=== PATIENT | female | born 1960 | race Caucasian/White ===

== ENCOUNTER → 2017-08-23 | Outpatient (CLI) | payer MEDICARE, OTHER | END | disposition home or self-care (01) | LOC: LAB UCHC 10:45 | DX: R35.0 Frequency of micturition (principal) | CPT/HCPCS: 87086 ==

== ENCOUNTER → 2017-08-29 | Outpatient (CLI) | payer MEDICARE, OTHER ==
[2017-08-29 11:22] LABS: Source, Urine Voided
[2017-08-29 14:18] LABS: Appearance, Urine Cloudy (Clear); Bilirubin, Urine Neg (Neg); Blood, Urine 5+ (Neg); Color, Urine Yellow (P-Yellow); Glucose Qualitative, Urine Neg (Neg); Ketones, Urine Neg (Neg); Leukocyte Esterase, Urine 1+ (Neg); Nitrite, Urine Neg (Neg); Protein, Urine 3+ (Neg); Urobilinogen, Urine NORM (Normal)
[2017-08-29 14:33] LABS: Bacteria Many /hpf; Red Blood Cells, Urine 50-100 /hpf (0-2); Squamous Epithelial Cells Few /hpf (Few); White Blood Cells, Urine 25-50 /hpf (0-5)
== END ==
LOC: LAB 11:19
PROVIDERS: Family Medicine
DX: R35.0 Frequency of micturition (principal); R30.0 Dysuria
CPT/HCPCS: 81001; 87086

== ENCOUNTER 2018-04-28 13:10 | Emergency (ER) | payer MEDICARE, OTHER ==
[~2018-04-28] VITALS: Ht 167.6 cm; Wt 79.4 kg
[2018-04-28 14:33] LABS: Source, Urine Clean Catch
[2018-04-28 14:40] LABS: Bilirubin, Urine Neg (Neg); Blood, Urine 5+ (Neg); Glucose Qualitative, Urine Neg (Neg); Ketones, Urine Neg (Neg); Leukocyte Esterase, Urine 2+ (Neg); Nitrite, Urine Neg (Neg); Protein, Urine 3+ (Neg); Urobilinogen, Urine NORM (Normal)
[2018-04-28 15:05] LABS: BASOPHILS ABSOLUTE AUTO 0.06 K/mm3 (0.00-0.23); BASOPHILS PERCENT AUTO 1 % (0-2); EOSINOPHILS ABSOLUTE AUTO 0.07 K/mm3 (0.00-0.68); EOSINOPHILS PERCENT AUTO 1 % (0-6); Hematocrit 39.6 % (33.0-51.0); Hemoglobin 13.7 g/dL (11.5-16.0); IMMATURE GRAN ABSOLUTE AUTO 0.02 K/mm3 (0.00-0.10); IMMATURE GRAN PERCENT AUTO 0 % (0-1); LYMPHOCYTES ABSOLUTE AUTO 2.39 K/mm3 (0.84-5.20); LYMPHOCYTES PERCENT AUTO 30 % (21-46); MONOCYTES ABSOLUTE AUTO 0.54 K/mm3 (0.16-1.47); MONOCYTES PERCENT AUTO 7 % (4-13); Mean Corpuscular HGB 31.1 pg (26.0-34.0); Mean Corpuscular HGB Conc 34.6 g/dL (31.5-36.5); Mean Corpuscular Volume 90 fL (80-100); Mean Platelet Volume 10.2 fL (9.1-12.4); NEUTROPHILS ABSOLUTE AUTO 4.98 K/mm3 (1.96-9.15); NEUTROPHILS PERCENT AUTO 62 % (41-73); Platelet Count 205 K/mm3 (150-400); RDW Coefficient Variation 11.9 % (11.7-14.2); White Blood Cell Count 8.06 K/mm3 (4.00-11.30)
[2018-04-28 15:11] LABS: Alanine Aminotransfer (ALT/SGP 117 U/L (12-78); Albumin, Blood 3.7 g/dL (3.4-5.0); Albumin/Globulin Ratio 0.9 (0.8-1.8); Alk Phos 54 U/L (50-136); Anion Gap 10 mmol/L (6-16); Aspartate Aminotrans (AST/SGOT 46 U/L (12-37); Bilirubin, Total 0.4 mg/dL (0.1-1.0); Blood Urea Nitrogen 15 mg/dL (8-24); Bun/Creatinine Ratio 29.8 (12.0-20.0); CO2, Blood 30 mmol/L (21-32); Calcium, Blood 10.2 mg/dL (8.5-10.1); Chloride, Blood 100 mmol/L (98-108); Ethanol (Alcohol), Blood, Med <3 mg/dL; Globulin, Blood 3.9 g/dL (2.2-4.0); Glomerular Filtration Rate >60 (60-); Glucose, Blood 153 mg/dL (70-99); Potassium, Blood 3.9 mmol/L (3.5-5.5); Sodium, Blood 140 mmol/L (136-145); Total Protein, Blood 7.6 g/dL (6.4-8.2)
[2018-04-28 15:12] LABS: Appearance, Urine Hazy (Clear); Color, Urine Yellow (P-Yellow)
[2018-04-28 15:17] LABS: Bacteria Few /hpf; Calcium Oxalate Crystals Few /hpf; Squamous Epithelial Cells Few /hpf (Few)
[2018-04-28 15:30] LABS: U Amphetamine Screen Not Detected; U Barbituate Screen Not Detected; U Benzodiazapine Screen Not Detected; U Buprenorphine Screen Not Detected; U Cannabinoids Screen Not Detected; U Cocaine Screen Not Detected; U Methadone Screen Not Detected; U Methamphetamine Screen Not Detected; U Opiates Screen Not Detected; U Oxycodone Screen Not Detected; U Phencyclidine Screen Not Detected; U Propoxyphene Screen Not Detected
== END 2018-04-28 16:01 | disposition left against medical advice (07) ==
LOC: ER 13:10
PROVIDERS: Emergency Medicine
DX: R41.82 Altered mental status, unspecified (principal); F17.200 Nicotine dependence, unspecified, uncomplicated
CPT/HCPCS: 36415; 70450; 80053; 81001; 82140; 82375; 85025; 87086; 93005; 93010; 96360; 99285-25; G0480; J7030

== ENCOUNTER 2019-07-12 14:24 | Observation (INO) | payer MEDICARE ==
[~2019-07-12] VITALS: Ht 160 cm; Wt 48.4 kg
[2019-07-12 15:12] LABS: BASOPHILS ABSOLUTE AUTO 0.03 K/mm3 (0.00-0.23); BASOPHILS PERCENT AUTO 0 % (0-2); EOSINOPHILS ABSOLUTE AUTO 0.08 K/mm3 (0.00-0.68); EOSINOPHILS PERCENT AUTO 1 % (0-6); Hematocrit 47.5 % (33.0-51.0); Hemoglobin 15.7 g/dL (11.5-16.0); IMMATURE GRAN ABSOLUTE AUTO 0.02 K/mm3 (0.00-0.10); IMMATURE GRAN PERCENT AUTO 0 % (0-1); LYMPHOCYTES ABSOLUTE AUTO 2.07 K/mm3 (0.84-5.20); LYMPHOCYTES PERCENT AUTO 22 % (21-46); MONOCYTES PERCENT AUTO 5 % (4-13); Mean Corpuscular HGB 31.1 pg (26.0-34.0); Mean Corpuscular HGB Conc 33.1 g/dL (31.5-36.5); Mean Corpuscular Volume 94 fL (80-100); Mean Platelet Volume 12.9 fL (9.1-12.4); NEUTROPHILS ABSOLUTE AUTO 6.55 K/mm3 (1.96-9.15); NEUTROPHILS PERCENT AUTO 71 % (41-73); Platelet Count 185 K/mm3 (150-400); RDW Coefficient Variation 12.5 % (11.7-14.2); RDW Standard Deviation 43.1 fL (35.1-46.3); Red Blood Cell Count 5.05 M/mm3 (3.80-5.20); White Blood Cell Count 9.25 K/mm3 (4.00-11.30)
[2019-07-12 15:26] LABS: International Normalized Ratio 1.02; Prothrombin Time Results 10.9 Sec (9.7-11.5)
[2019-07-12 15:40] LABS: Alanine Aminotransfer (ALT/SGP 51 U/L (12-78); Albumin, Blood 3.4 g/dL (3.4-5.0); Albumin/Globulin Ratio 0.7 (0.8-1.8); Alk Phos 89 U/L (50-136); Anion Gap 6 mmol/L (6-16); Aspartate Aminotrans (AST/SGOT 35 U/L (12-37); Bilirubin, Total 0.4 mg/dL (0.1-1.0); Blood Urea Nitrogen 29 mg/dL (8-24); Bun/Creatinine Ratio 40.1 (12.0-20.0); CO2, Blood 30 mmol/L (21-32); Calcium, Blood 9.7 mg/dL (8.5-10.1); Chloride, Blood 113 mmol/L (98-108); Creatinine, Blood 0.72 mg/dL (0.40-1.00); Ethanol (Alcohol), Blood, Med <3 mg/dL; Globulin, Blood 4.7 g/dL (2.2-4.0); Glomerular Filtration Rate >60 (60-); Glucose, Blood 470 mg/dL (70-99); Potassium, Blood 4.4 mmol/L (3.5-5.5); Sodium, Blood 149 mmol/L (136-145); Total Protein, Blood 8.1 g/dL (6.4-8.2)
[2019-07-12 17:17] LABS: Source, Urine Clean Catch
[2019-07-12 17:19] LABS: Bilirubin, Urine Neg (Neg); Blood, Urine 1+ (Neg); Glucose Qualitative, Urine 4+ (Neg); Ketones, Urine Neg (Neg); Leukocyte Esterase, Urine 1+ (Neg); Nitrite, Urine Neg (Neg); Protein, Urine 1+ (Neg); Urobilinogen, Urine NORM (Normal)
[2019-07-12 17:28] LABS: Appearance, Urine Clear (Clear); Color, Urine Yellow (P-Yellow)
[2019-07-12 17:29] LABS: Bacteria Mod /hpf; Hyaline Casts 0-2 /lpf (0-2); Mucus Mod (0-Heavy); Red Blood Cells, Urine 0-2 /hpf (0-2); Squamous Epithelial Cells Rare /hpf (Few)
[2019-07-12 17:32] LABS: U Amphetamine Screen Not Detected; U Barbituate Screen Not Detected; U Benzodiazapine Screen Not Detected; U Buprenorphine Screen Not Detected; U Cannabinoids Screen Not Detected; U Cocaine Screen Not Detected; U Methadone Screen Not Detected; U Methamphetamine Screen Not Detected; U Opiates Screen Not Detected; U Oxycodone Screen Not Detected; U Phencyclidine Screen Not Detected; U Propoxyphene Screen Not Detected
[2019-07-12 18:55] LABS: Free Thyroxine 0.73 ng/dL (0.70-1.60)
[2019-07-12 18:58] LABS: Thyroid Stimulating Hormone 2.29 uIU/mL (0.360-4.800); Triiodothyronine, Free 2.05 pg/mL (2.18-3.98)
--- NOTE | 2019-07-13 02:40 | NUR ---
FINANCE ADMINISTRATOR SUMMARY PT NEW ADMIT FROM ER. REPORT RECIEVED FROM AMY HUERTA AROUND 2200. 2315 OT TRANSFFERED TO UNIT VIA STRETCHER. MOVED TO UNIT BED USING TRANSFER SHEET. PT IS NOT A/O. CAN SOMETIMES ANSWER YES AND NO QUESTIONS. OCCASIONALLY WOULD SMILE AND NOD BUT CANNOT COMPREHEND WHAT STAFF SAYS. PT IS NOT COMBATIVE BUT WOULD REACH OUT FOR MY HAND WHEN I GAVE HER INJECTIONS. AYDEE DU HELPED ME HOLD HER HAND WHILE I GAVE HER INJECTIONS PER EMAR. PT CURRENTLY ON BED REST. VSS, WILL CONTINUE TO MONITOR.
[2019-07-13 05:41] LABS: Anion Gap 6 mmol/L (6-16); Blood Urea Nitrogen 25 mg/dL (8-24); Bun/Creatinine Ratio 33.3 (12.0-20.0); CO2, Blood 30 mmol/L (21-32); Calcium, Blood 9.3 mg/dL (8.5-10.1); Chloride, Blood 118 mmol/L (98-108); Creatinine, Blood 0.75 mg/dL (0.40-1.00); Glomerular Filtration Rate >60 (60-); Glucose, Blood 112 mg/dL (70-99); Potassium, Blood 3.2 mmol/L (3.5-5.5); Sodium, Blood 154 mmol/L (136-145)
--- NOTE | 2019-07-13 18:09 | NUR ---
PATIENT IS ALERT. SHE IS CONFUSED. NON-COMBATIVE. SHE GRINDS HER TEETH. SHE IS AT TIMES DIFFICULT TO REDIRECT. SHE HAS A GOOD APPETITE, SHE LIKES ENSURES. WILL CONTINUE TO MONITOR
--- NOTE | 2019-07-14 05:58 | NUR ---
SHIFT SUMMARY: ALERT TO SELF ONLY. PT SPEAKING ONE OR TWO WORDS IN RESPONSE TO CONVERSATION. REPEATS WORDS SHE HEARS. LAUGHING AT THE TV SHOW SHE WAS WATCHING. PT HAS SLEPT WELL MUCH OF THE NIGHT. SLEEPS THROUGH TURNS AND WAKES MINIMALLY WITH BRIEF CHANGES. BED LOW, BED ALARM ON.
[2019-07-14 11:51] LABS: Anion Gap 5 mmol/L (6-16); Blood Urea Nitrogen 21 mg/dL (8-24); Bun/Creatinine Ratio 30.1 (12.0-20.0); CO2, Blood 29 mmol/L (21-32); Calcium, Blood 8.3 mg/dL (8.5-10.1); Chloride, Blood 109 mmol/L (98-108); Glomerular Filtration Rate >60 (60-); Glucose, Blood 147 mg/dL (70-99); Potassium, Blood 3.7 mmol/L (3.5-5.5)
[2019-07-14 11:52] LABS: Sodium, Blood 143 mmol/L (136-145)
--- NOTE | 2019-07-14 17:53 | NUR ---
PATIENT MORE VERBAL THE DAY PROGRESSED. SON AND BROTHER AT BEDSIDE FOR PART OF THE DAY. PATIENT HAD SEVERAL HARD BM'S THIS SHIFT AND BOWEL CARE WAS ORDERED. BLOOD SUGAR THIS EVENING WAS 431, DR FERNANDO NOTIFIED AND 12 UNITS NOVOLOG GIVEN. WE ARE TO RECHECK BLOOD SUGAR AT 1930. VSS, ON RA. PATIENT UP WITH SBA. SKIN INTACT. PRN SEROQUEL GIVEN X1 THIS SHIFT FOR AGITATION. PATIENT DOES NOT FOLLOW COMMANDS. AWAITING PLACEMENT.
--- NOTE | 2019-07-15 06:13 | NUR ---
MACHINIST SUPERVISOR OUTSIDE SUMMARY Mary slept through the night other than when she was turned. Coccyx moderately red, but dose farideh with light palpation. patient does not ever lay on back. combination silicone and calmoseptine. Patient pleasant and cooperative with care although non verbal except for a rare amount of one word responses.
--- NOTE | 2019-07-15 17:34 | NUR ---
NO ACUTE CHANGES THIS SHIFT. FALL PRECAUTIONS IN PLACE PER UNIT PROTOCOL. PATIENT IS PLEASANTLY CONFUSED BUT COOPERATIVE. AWAITING PLACEMENT.
--- NOTE | 2019-07-16 04:18 | NUR ---
CCU NURSE SUMMARY Patient slept comfortably all night. She was able to turn self from side to side and onto her back with very minimal assistance. Still basically non verbal. whispering indistinguishable one word answers in response to nurses questions. She did try to bite the milk carton she was drinking from once it was empty, However She stopped as soon as she was told it was not good for her.no complaints or gestures indicating pain or discomfort. Incont of urine twice overnight
--- NOTE | 2019-07-16 19:36 | NUR ---
SHIFT SUMMARY- PT HAD A VISITOR FROM THE COURT TODAY ABOUT HER GUARDIANSHIP. HE STATED THAT HE HAS BEEN UNABLE TO MAKE CONTACT WITH PT FAMILY OF YET. PT HAS ADVANCED DEMENTIA AND WILL EAT ANYTHING LEFT WITHIN HER REACH. CLOSE MONITORING WITH ALL MEALS HER MEALS COME IN FOAM BOWLS. PT DID NOT EAT ANY OF THE DISHES TODAY. PASSED ON IN REPORT TO THE NIGHT DEANNA SARKAR IN REPORT. BED ALARM FOR SAFETY.
--- NOTE | 2019-07-17 06:08 | NUR ---
SHIFT SUMMARY NO ACUTE CHANGES THIS SHIFT. AOX1, TO SELF ONLY. DOES NOT ANSWER QUESTIONS APPROPRIATELY, WHEN ASKED WHERE SHE IS SHE STATES "HERE" & REPLYS "I DON'T KNOW" WHEN ASKED OTHER QUESTIONS, MOST OF THE TIME THOUGH SHE IS QUIET & MUMMBLES WORDS THAT DON'T HAVE ANYTHING TO DO WITH WHAT YOU'VE ASKED. DOES NOT FOLLOW DIRECTIONS WELL. COOPERATIVE W/CARE. VSS. DENIES PAIN, N/V, OR DYSPNEA & SHOWS NO S/S. INCONTINENT OF URINE & CHANGED PRN. CALL LIGHT IN REACH & BED ALARM IN PLACE. WCTM.
--- NOTE | 2019-07-17 17:43 | NUR ---
NO ACUTE CHANGES NOTED. PATIENT REMAINS NONSENSICAL IN HER SPEACH AND VERBAL INTERACTIONS WITH STAFF. NO CURRENT COMPLAINTS OF PAIN OR DISCOMFORT NOTED. PATIENTS BED ALARM GOES OFF OFTEN DUE TO SHE SIZE. SHE REMAINS IN BED OR THE CHAIR WITH MINIMAL ATTEMPS TO ACTUALLY GET UP. NO OTHER ISSUES NOTED AT THIS TIME. WILL CONTINUE TO MONITOR FOR CHANGES.
--- NOTE | 2019-07-17 17:58 | NUR ---
Inital spiritual care note: Mary was alone in room, awake, and sitting up in bed. She mumbled some tings about her father, but did not appear able to engage in conversation. She could not answer questions, and laughed wildly for no apparent reason. She smiles easily and appears well cared-for by nursing. I provided calm presence, returned her smiles, and comforted. I will remain available to pr and family.
--- NOTE | 2019-07-18 06:34 | NUR ---
SHIFT SUMMARY NO ACUTE CHANGES THIS SHIFT. AOX1-SELF ONLY. VSS. DOES NOT FOLLOW DIRECTIONS. IS VERBAL @TIMES BUT DOES NOT ANSWER QUESTIONS APPROPRIATELY & HAS NONSENSICAL SPEECH. NO S/S OF PAIN, N/V, DYSPNEA. INCONTINENT, CHANGED PRN. CALL LIGHT IN REACH, BED ALARM IN PLACE. WCTM.
--- NOTE | 2019-07-18 13:45 | NUR ---
Pt. is sitting up on a chair confused offered prayers .
--- NOTE | 2019-07-18 15:26 | NUR ---
ALERT TO SELF. DOES BEST WITH FINGER FOODS DOES NOT USE UTENSILS. ONCE IN AWHILE WILL REPEAT WORDS THAT RN SAYS. LAUGHS AT ANYTHING. GRINDS TEETH CONSTANTLY. NO C/O. BED AND CHAIR ALARMS USED. WCTM
--- NOTE | 2019-07-18 18:24 | NUR ---
FRIEND OF FAMILY SHOWS UP AND INQUIRES ABOUT PATIENT. [facility] SHE BROUGHT PATIENT INTO HOSPITAL SHE WAS NOT DOING WELL AT HOME WITH SYMPTOMS X 1 YEAR. STS SON, INDY, HAS GUARDIANSHIP OF PATIENT AND WAS SUPPOSE TO BRING IN PAPERS. INDY CAN BE REACHED AT [employer], . [facility] INDY HAS BEEN TO [place] IN [place] AND WOULD LIKE PATIENT TO GO THERE. FRIEND [facility] SHE WILL TELL INDY TO BRING IN GUARDIANSHIP PAPERS. MESSAGE LEFT ON ZION BUTLER.
--- NOTE | 2019-07-19 04:03 | NUR ---
SHIFT SUMMARY PT HAD NO NEW ISSUES NOTED. PT HAS BEEN SLEEPING T/O SHIFT. PT HAS BEEN CHANGED AND REPOSITIONED NEEDED. PT CURRENTLY SLEEPING AND BREATHING EASY. CALL LIGHT IN REACH AND BED ALARM ON.
--- NOTE | 2019-07-19 17:40 | NUR ---
SHIFT SUMMARY- PT IS PLESANT AND CONFUSED. SHE INFREQUENTLY RESPONDS APPROPRIATLY TO QUESTIONS. SHE IS INCONTINENT OF STOOL AND REQUIRED TWO SHOWERS TODAY TO REMOVE STOOL. SHE BECAME RESTLESS THIS AFTERNOON AND WAS ATTEMPTING TO WANDER AROUND THE UNIT. I WALKED THE MARTINEZ WITH HER. SHE IS EATING AND DRINKING WELL. GIVING SMALL AMOUNTS OF HER MEAL AT A TIME.
--- NOTE | 2019-07-19 23:15 | NUR ---
PT RESTING COMFORTABLY IN BED; ALERT PERSON ONLY.
--- NOTE | 2019-07-20 03:54 | NUR ---
SHIFT SUMMARY: 59 Y/O FEMALE RESTED COMFORTABLY ALL SHIFT WITH NO ISSUES NOTED; NO PAIN OR NAUSEA NOTED; NO FOREIGN OBJECTS OR STOOL EATEN BY PATIENT; BED ALARM APPLIED, BED LOW POSITION WITH CALL LIGHT AT SIDE.
--- NOTE | 2019-07-20 17:24 | NUR ---
SHIFT SUMMARY- PT IS PLESANT AND ALERT. PT IS CONFUSED, SHE DOES NOT RESPOND APPROPRIATLY TO MOST QUESTION. WHEN SHE AWOKE THIS MORNING SHE HAD FECAL MATERIAL IN HER MOUTH, PROVIDED ORAL CARE. [facility] CAME TO EVALUATE HER TO SEE IF SHE COULD BE PLACED IN THEIR FACILITY.
--- NOTE | 2019-07-20 21:59 | NUR ---
2000 PT ALERT PERSON ONLY; GARBLED SPEECH; THOUGHT PROCESS DISORGANIZED; TOOK ALL MEDICATIONS IN PUDDING WHICH WAS FED TO PATIENT BY THIS NURSE; ALL ITEMS THAT PATIENT COULD POSSIBLY EAT TO INCLUDE STYROFOAM GLASSES, PAPER AND PLASTIC ITEMS ARE REMOVED FROM ROOM; PT IS GIVEN SUPERVISION WHEN EATING ALL ITEMS PATIENT HAS HX OF PICA EATER; PT APPEARS COMFORTABLE AND IN NO PAIN.
--- NOTE | 2019-07-21 04:50 | NUR ---
SHIFT SUMMARY: 59 Y/O SLENDER FEMALE HAD UNEVENTFUL SHIFT; ALERT TO PERSON ONLY; INCONTINENT BOWEL AND BLADDER; NO PICA EATING OF STOOL OR OTHER FOREIGN OBJECTS NOTED; NO PAIN OR NAUSEA NOTED; BED ALARM APPLIED, BED LOW POSITION WITH CALL LIGHT AT SIDE.
--- NOTE | 2019-07-21 17:01 | NUR ---
SHIFT SUMMARY PT AWAKE DURING SHIFT REPORT, RESTING QUIETLY LOOKING AROUND. PT MOSTLY NONVERBAL. DOES MAKE SOME SOUNDS, BUT NOT UNDERSTANDABLE. PT HAS BEEN INCONTINENT OF BOWEL AND BLADDER. PAJAMA PANTS PLACED WITH TIE IN BACK TO KEEP PT'S HANDS OUT OF STOOL. HANDS AND TEETH BROWN WITH STOOL AT START OF SHIFT. HANDS WASHED AND TEETH BRUSHED. BED BATH GIVEN LATER. PT IS ABLE TO FEED SELF, BUT SUPERVISION IS GIVEN WITH CONTAINERS. DR MCADAMS IN T SEE PT. NO NEW ORDERS AT THIS TIME. BED ALARM ON FOR SAFETY. PT ASSISTED TO CHAIR AT BS WITH CHAIR ALARM, BUT WILL NOT SIT IN IT. CALL LT IN REACH.
--- NOTE | 2019-07-21 22:14 | NUR ---
2000 PT RESTING COMFORTABLY IN BED; ALERT TO PERSON ONLY; PT HAS HOSPITAL PANTS APPLIED ON BACKWARDS TO ASSIST WITH KEEPING PATIENT FROM PLACING HER HANDS IN ATTENDS DIAPERS AND ATTEMPTING TO EAT STOOL (HX PICA EATER); PT REQUIRES 100% ASSISTANCE WITH ALL ADLS/IADLS; SPEECH GARBLED WITH 1-2 WORDS SPOKEN; PT APPEARS TO HAVE NO PAIN OR NAUSEA; BED ALARM APPLIED WITH CALL LIGHT AT SIDE.
--- NOTE | 2019-07-22 04:30 | NUR ---
SHIFT SUMMARY: 59 Y/O FEMALE RESTED COMFORTABLY ALL SHIFT; ALERT TO PERSON ONLY, UNABLE TO VERBALIZE ANY WORDS; OPENS EYES WHEN REPOSITIONED AND CHANGED BY NURSING STAFF; PT HAS HX PICA EATING WITH PATIENT AT TIMES ATTEMPTING TO PLACE HANDS NEAR ANUS AND THUS ATTENDS DIAPERS ARE IN PLACE WITH HOSPITAL PANTS APPLIED ON BACKWARDS TO ASSIST WITH PREVENTING PATIENTS BEHAVIORS; APPEARS TO NOT HAVE ANY PAIN OR NAUSEA; BED ALARM APPLIED, BED LOW POSITION WITH CALL LIGHT AT SIDE.
--- NOTE | 2019-07-22 14:30 | NUR ---
PT FRIEND INTO SEE PT, EXPRESSING CONCERN ABOUT THE PLAN FOR PT DISCHARGE TO [facility]. SPOKE WITH FAMILY ON PHONE, FAMILY INDICATED THAT [facility] TOLD THEM THAT THEY MAY HAVE A ROOM COMING UP TOMORROW. TOLD VISITOR AND FAMILY ON PHONE THAT THEY NEEDED TO CONTACT CASE MANAGEMENT IN THE MORNING. MESSAGE LEFT FOR RUTH WATSON.
--- NOTE | 2019-07-22 18:07 | NUR ---
PT REMAINS CONFUSED AND MOSTLY NON-VERBAL, SHE IS EATING AND DRINKING AT MEAL TIMES. SHE IS INCONT WEARS ATTENDS, REQUIRES TWO PEOPLE TO CHANGE D/T HER INABLILITY TO FOLLOW DIRECTIONS. CURRENT PLAN IS FOR HER TO DISCHARGE TO [facility] ON TUESDAY, BUT FAMILY AND FRIEND WERE EXPRESSING UNHAPPINESS WITH THAT PLAN. MESSAGE LEFT FOR RUTH WATSON IN CASE MANAGEMENT. NO ACUTE CHANGES NOTED, WILL CONTINUE TO MONITOR AND REPORT TO ONCOMING RN.
--- NOTE | 2019-07-22 23:56 | NUR ---
PT. ASLEEP IN BED, NO APPARENT DISTRESS NOTED. CALL LIGHT WITHIN REACH, SIDE RAILS UP X2, AND BED ALARM ON. WILL CONT TO MONITOR.
--- NOTE | 2019-07-23 05:26 | NUR ---
SHIFT SUMMARY- NO ACUTE CHANGES OVERNIGHT. PT. IS NONVERBAL WITH SEVERE DEMENTIA. AGITATED AT THE START OF THE SHIFT AND GRINDS TEETH CONTINOUSLY. SCHEDULED SEROQUEL GIVEN PER EMAR. PT. ASLEEP T/O THE NIGHT, NO APPARENT DISTRESS NOTED. PT. INCONTINENT OF URINE AND BOWEL. ATTENDS CHANGE DONE AND PT. REPOSITIONED BY THIS NURSE AND HR ADMINISTRATIVE ASSISTANT. CALL LIGHT WITHIN REACH, SIDE RAILS UP X2, AND BED ALARM ON. WILL CONT TO MONITOR.
--- NOTE | 2019-07-23 17:06 | NUR ---
SHIFT SUMMARY PT HAS HAD NO ACUTE CHANGES THIS SHIFT, NO COMPLAINTS OF ANY KIND. FAMILY BRIEFLY @ BEDSIDE THIS SHIFT, [employer] DIAGNOSTICS SALES DEVELOPER ASSISTED IN ROOM, PT BEDRESTING AT THIS TIME, ALARMS IN PLACE, CALL LIGHT IN REACH, WILL CONT TO MONITOR UNTIL REPORT GIVEN TO CHRISSY RN.
--- NOTE | 2019-07-23 22:39 | NUR ---
PT. QUIETLY SLEEPING IN BED, NO APPARENT DISTRESS NOTED. SCHEDULED MED GIVEN EARLIER IN THE EVENING PER EMAR, PT. TOLERATED WELL. ATTENDS IN PLACE. CALL LIGHT WITHIN REACH, SIDE RAILS UP X3, AND BED ALARM ON FOR SAFETY. WILL CONT TO MONITOR.
--- NOTE | 2019-07-24 05:19 | NUR ---
SHIFT SUMMARY- NO ACUTE CHANGES OVERNIGHT. PT. ASLEEP T/O THE SHIFT, NO APPARENT DISTRESS NOTED. ATTENDS CHANGE DONE OFTEN AND REPOSITONED PRN. NO COMPLAINTS LAST NIGHT. CALL LIGHT WITHIN REACH, SIDE RAILS UP X2, AND BED ALARM ON FOR SAFETY.
--- NOTE | 2019-07-24 13:16 | NUR ---
Met pt. lying in bed and watching T.V. ,Pt. seems to be doing much better offered prayers formthe pt.
--- NOTE | 2019-07-24 18:28 | NUR ---
SHIFT SUMMARY NO ACUTE CHANGES. PATIENT DENIES PAIN, NAUSEA, AND SHORTNESS OF BREATH. PATIENT PLEASANT AND COOPERATIVE [facility] CARE. PATIENT WALKED IN HALLWAY WITH STAFF. GIVEN PRN SEROQUEL X1. CALL LIGHT IN REACH.
--- NOTE | 2019-07-25 05:30 | NUR ---
SHIFT SUMMARY- NO ACUTE CHANGES OVERNIGHT. PT. SLEPT ON/OFF DURING THE NIGHT, NO APPARENT DISTRESS NOTED. TEETH GRINDING HAS IMPROVED. PT. INCONTINENT OF URINE AND BOWEL, ATTENDS IN PLACE. PT. AWAITING PLACEMENT. CALL LIGHT WITHIN REACH, SIDE RAILS UP X2, AND BED ALARM ON. WILL CONT TO MONITOR.
--- NOTE | 2019-07-25 13:47 | NUR ---
Pt. is in bed confused prayed for the pt.
--- NOTE | 2019-07-25 16:37 | NUR ---
SHIFT SUMMARY NO ACUTE CHANGES. PATIENT DENIES PAIN, NAUSEA, AND SHORTNESS OF BREATH. PATIENT SHOW NO NON VERBAL SIGN OF DISTRESS. PATIENT GIVEN PRN SEROQUEL X1 THIS SHIFT. PATIENT UP SBA IN ROOM. PATIENT INTERVIEWED BY [facility] TODAY. CALL LIGHT IN REACH.
--- NOTE | 2019-07-25 22:03 | NUR ---
PATIENT WOKE UP FOR MEDICATION ADMINISTRATION AND ASSESSMENT AND BACK TO SLEEP. MEDICATION GIVEN WITH APPLE SAUCE. HX SEVERE DEMENTIA.
--- NOTE | 2019-07-25 22:32 | NUR ---
[facility] [place] PATIENT SLEEPING.
--- NOTE | 2019-07-26 04:03 | NUR ---
SHIFT SUMMARY PATIENT HAD NO ACUTE CHANGES OBSERVED. AXOX TO SELF. HX SEVERE DEMENTIA. ONE ASSIST TO BSC. TAKES MEDICATION WHOLE WITH APPLE SAUCE. VSS/AFEBRILE. NO S/SX OF PAIN, SOB, AND N/V. CBG 187. NO IV ACCESS. ABLE TO SLEEP MOST OF THE SHIFT. CALL LIGHT IN REACH. BED IN LOWEST POSITION AND ALARM ACTIVATED. WILL CONTINUE TO MONITOR UNTIL DAY SHIFT NURSE ASSUME CARE.
--- NOTE | 2019-07-26 13:08 | NUR ---
Pt. is sitting in a chair nresting and doing much better ,offered prayers for pt.
--- NOTE | 2019-07-26 18:44 | NUR ---
NO ACUTE CHANGES TO PATIENT . PATIENT CONFUSED AND DOES NOT COMMUNICATE BEYOND YES OR NO.
--- NOTE | 2019-07-27 03:52 | NUR ---
SHIFT SUMMARY PATIENT HAD NO ACUTE CHANGES OBSERVED. AXO TO SELF. ONE ASSIST TO BSC AND TWO ASSIST FOR ATTENDS CHANGES. VSS/AFEBRILE. CBG 172. NO IV ACCESS. NO S/SX OF PAIN, SOB, AND N/V. CALL LIGHT IN REACH. BED IN LOWEST POSITION. WILL CONTINUE TO MONITOR UNTIL DAY SHIFT NURSE ASSUMES CARE.
--- NOTE | 2019-07-27 16:52 | NUR ---
NO ACUTE CHANGES. HAS SPOKEN A TOTAL OF 5 WORDS THIS SHIFT. SMILES AND LAUGHS BUT NOT MUCH ELSE IS GOING ON VERBALLY. SHE HAS BEEN UP IN CHAIR THIS SHIFT. CALL LIGHT WITHIN REACH.
--- NOTE | 2019-07-28 05:42 | NUR ---
SHIFT SUMMARY PT HAS SLEPT T/O SHIFT. NO ISSUES TO REPORT. PT CURRENTLY SLEEPING AND IN NO DISTRESS. CALL LIGHT IN REACH. BED ALARM ON.
--- NOTE | 2019-07-28 17:53 | NUR ---
PT IS A/ERT ORIENTED TO SELF ONLY, THE PT IS UP WITH MINIMAL ASSIST TO THE CHAIR, THE PT APPEARS TO BE BREATHING EASILY ON RA, THE PT DOES ANSWER SOME YES/NO QUESTIONS OTHERWISE IS MOSTLY NON VERBAL, THE PT SLEPT OFF AND ON T/O THE DAY, CALL LIGHT IN REACH, WILL CONTINUE TO MONITOR AND ASSESS FOR CHANGES, BED ALARM ON
--- NOTE | 2019-07-29 05:14 | NUR ---
SHIFT SUMMARY NO ISSUES NOTED. NO CHANGES. PT SLEPT T/O SHIFT. CALL LIGHT IN REACH. BED ALARM ON.
--- NOTE | 2019-07-29 17:15 | NUR ---
PT IS ALERT, ORIENTED TO SELF ONLY , MOSTLY NON VERBAL, DOES REPLY AT TIMES WITH SHORT REMARKS, PT APPEARS TO BE BREATHING EASILY ON RA, PT APPEARS TO BE IN NO PAIN, THE PT WAS UP IN THE CHAIR FOR MEALS, PT WAS ASSISTED WITH HER MEALS BY THE HAIR SPRING CUTTER, BED ALARM AND CHAIR ALARMS APPLIED, WILL CONTINUE TO MONITOR AND ASSESS FOR CHANGES
--- NOTE | 2019-07-30 01:19 | NUR ---
THIS RN OBSERVED RUST/BLOOD TINGED BM AND DISCOVERED THIS HAS BEEN RECORDED FOR SEVERAL DAYS. PT HASN'T HAD LABS DRAWN SINCE 07/12/19 AND IT DOESN'T APPEAR THAT ANY STOOL SPECIMENS HAVE BEEN OBTAINED FOR GUAIAC. VSS AND PT HAS BEEN HYPOTENSIVE W/SBP 90'S-100'S SINCE ADMIT BUT PT WAS REPORTED TO HAVE BEEN DRINKING HIGHLY CORROSIVE LIQ'S (MOTOR OIL, GAS, BLEACH) PRIOR TO ADMISSION. MADE AWARE AND GUAIAC RX'D W/HGB AND HCT LAB DRAW IN AM.
--- NOTE | 2019-07-30 05:05 | NUR ---
SUMMARY: PT A/OX1, SELF ONLY AND HAS DIFFICULTY FOLLOWING INSTRUCTION OR ANSWERING Q'S CORRECTLY. SHE SEEMS TO ANSWER MOST YES/NO APPROPRIATELY AND DENIED PAIN/COMPLAINTS BUT ISN'T ABLE TO USE CALL LIGHT. SHE'S 1-2 ASSIST OOB AND DURING REPOSITIONING D/T DIFFICULTY FOLLOWING COMMANDS. PT IS INCONTINENT OF URINE/STOOL W/ATTENDS CHANGED PRN. THIS RN OBSERVED RUST (BLOOD TINGED BM'S). IT DIDN'T APPEAR THAT ANY GUAIAC HAD BEEN DONE AND LABS HADN'T BEEN REPEATED SINCE ADMISSION ON 07/12/19. DR. RODRÍGUEZ ALERTED AND AM H/H RX'D W/ GUAIAC COLLECTION. WILL OBTAIN STOOL SPECIMEN W/NEXT BM. NO ACUTE CHANGES, VSS AND AFEBRILE. SHE SLEPT ENTIRETY OF NIGHT EXCEPT WHEN CARE PERFORMED. WCTM AND REPORT TO DAY RN. LABS PENDING AND WILL ALERT MD MADELYN.
--- NOTE | 2019-07-30 05:50 | NUR ---
STOOL SPECIMEN OBTAINED AND SENT. CONT'S TO APPEAR RUST COLORED. GUAIAC RESULTS PENDING.
[2019-07-30 06:13] LABS: Hematocrit 37.7 % (33.0-51.0); Hemoglobin 12.9 g/dL (11.5-16.0)
[2019-07-30 13:33] LABS: Stool Occult Blood Guaiac 1 Neg (Neg)
--- NOTE | 2019-07-30 19:14 | NUR ---
SHIFT SUMMARY: NO ACUTE CHANGES TO REPORT THIS SHIFT. PT ALERT; ORIENTED TO SELF ONLY. GUAIAC NEGATIVE. AWAITING PLACEMENT. REPORT GIVEN TO ONCOMING RN.
--- NOTE | 2019-07-31 04:17 | NUR ---
SUMMARY: A/O TO SELF ONLY. OCCASIONALLY SHE'LL SAY A SENTENCE THAT MAKES SENSE OR ANSWER YES/NO Q'S APPROPRIATELY BUT RESPONSES ARE MOSTLY NONSENSICAL. BED/CHAIR ALARMS ON FOR CONFUSION, FALL RISK AND OCCASIONAL IMPULSIVITY. PT CONT'S TO HAVE FREQ RUST COLORED BM'S W/ATTENDS AND LINEN CHANGED PRN FOR INCONTINENCE. CALAZIME CREAM APPLIED TO RED BOTTOM D/T PERISTANT EXCORIATION. SHE HAS DIFFICULTY FOLLOWING INSTRUCTION SO IS 1-2 ASSIST FOR ADL'S, OOB AND REQUIRES MEAL SET-UP/FEEDER ASSIST. GUARDIANSHIP AND PLACEMENT PENDING. NO ACUTE CHANGES, VSS/AFEBRILE. WCTM AND REPORT TO DAY RN.
--- NOTE | 2019-07-31 13:17 | NUR ---
Pt. is sitting on a chair and having her bnlunch she reports doing fine and is happy for that offered prayers
--- NOTE | 2019-07-31 17:05 | NUR ---
PT AOX1 AND HAS BEEN COOPERATIVE WHEN GIVEN CARE. SHE CAN BE MILDLY RESISTANT, BUT WILL REDIRECT WHEN RECIEVING CARE. PT HAS BEEN UP IN RECLINER AND DOING WELL. PT DOES NOT CALL FOR HELP AND BED ALARM AND CHAIR ALARM ARE USED AND IN PLACE. NO DISTRESS NOTED AT THIS TIME WILL CONTINUE TO MONITOR.
--- NOTE | 2019-08-01 05:58 | NUR ---
SHIFT SUMMARY: PATIENT IS ALERT BUT ONLY ORIENTED TO SELF, UNABLE TO MAKE NEEDS KNOWN. INC. OF URINE AND STOOL, VS ARE STABLE. INC. OF LARGE AMOUNTS OF URINE. PATIENT TAKES ALL FOOD AND FLUIDS THAT ARE GIVEN WITHOUT DIFFICULTY, SUPERVISION WITH ALL PO INTAKE IS NEEDED. BED ALARM IS ON FOR SAFETY.
--- NOTE | 2019-08-01 13:28 | NUR ---
Pt. is doing doing much better offered prayers.
--- NOTE | 2019-08-01 17:28 | NUR ---
PT AOX1. PT HAS BEEN UP IN CHAIR FOR MEALS. PT TODAY HAS TAKEN A LOT OF NAPS IN HER BED. NO DISTRESS NOTED AT THIS TIME. WILL COOPERATE WITH PERSISTANCE WITH MOST THINGS. PT EATING WELL. BED ALARMS IN PLACE PT DOES NOT CALL AND CAN BE IMPULSIVE. WILL CONTINUE TO MONITOR.
--- NOTE | 2019-08-02 05:21 | NUR ---
SHIFT SUMMARY: PATIENT IS ALERT AND CONFUSED, UNABLE TO MAKE NEEDS KNOWN. INCONTINENT OF BOWEL AND BLADDER. REDDNESS OBSERVED ON COCCYX, MEPILEX WAS PLACED FOR PREVENTION OF SKIN BREAKDOWN. VS ARE STABLE AND BED ALARM IS ON FOR SAFETY.
--- NOTE | 2019-08-02 14:13 | NUR ---
Pt. in bed relaxed and doing well offrered prayers
--- NOTE | 2019-08-02 16:30 | NUR ---
SUMM- PT ALERT TO SELF ONLY. SET UP FOR MEALS AND ASSIST. PT INCONT AND INCONT CARE. PT BATHED AND UP TO CHAIR AFTER LUNCH THROUGH DINNER. TOLEATING FOOD AND FLUIDS. DID NOT SET OFF BED OR CHAIR ALARM. OFFERED EMOTIONAL SUPPORT THROUGHOUT THE DAY. PT IS SIMPLE, SPEAKS IN SHORT PHRASES OCCASIONALLY. LAUGHS AND WATCHING CARTOONS MOST OF THE DAY.
[2019-08-03 01:39] LABS: Stool Occult Blood Guaiac 1 Neg (Neg)
--- NOTE | 2019-08-03 06:40 | NUR ---
LABS: STOOL FOR OCCULT BLOOD IS NEGATIVE.
--- NOTE | 2019-08-03 07:16 | NUR ---
SHIFT SUMMARY: PATIENT CONTINUES TO BE PLEASANTLY CONFUSED, NO S/S OF PAIN OR DISCOMFORT. VS ARE STABLE, INC. OF BOWEL AND BLADDER. PATIENT SLEPT WELL THIS SHIFT. BED ALARM IS ON FOR SAFETY.
--- NOTE | 2019-08-03 15:54 | NUR ---
SHIFT SUMMARY PT IS ALERT AND AWAKE BUT NOT ORIENTED. SHE HAS NO S/S OF PAIN. PT REMAINS INC OF BOWEL AND BLADDER AND IS A MAX ASSIST FOR TOILETING AND RE-POSITIONING. CBGS HAVE BEEN WNL AND SHE HAS NO S/S OF HYPER/HYPO GLYCEMIA. PT CONTINUES TO AWAIT PLACEMENT. PT IS NOT ABLE TO MAKE HER NEEDS KNOWN AND NEEDS FREQUENT NURSE ROUNDING.
--- NOTE | 2019-08-03 19:35 | NUR ---
CALLED SCU MONITOR VERIFIED THAT THIS PT IS BEING VIDEO MONITORED BY SCU SPINNER FIXER BRIANNA
--- NOTE | 2019-08-04 04:49 | NUR ---
SHIFT SUMMARY ADMITTED FOR DANGER TO SELF. FULL CODE. PT HAS ADVANCED DEMENTIA: SAID TO INGEST FECES, BLEACH, AND MOTOR OIL. 2 ASSIST TO ATTENDS CHANGE, BEDREST. AC CHEMSTICKS, RA, INCONTINENT, FINGER FOOD DIET. A&O ONLY TO SELF. AWAITING PLACEMENT. HX: DEMENTIA, DM2.
--- NOTE | 2019-08-04 18:02 | NUR ---
SHIFT SUMMARY. ALERT, ORIENTATED TO SELF. PT IS UNABLE TO ANSWER QUESTIONS APPROPRIATLY MOST OF THE TIME. NO OBSERVED DISTRESS OR DISCOMFORT. PT HAS EXELLENT PO INTAKE. 3 VISITORS, TODAY. PT BECAME MORE AGITATED WITH VISITORS, SHE CALMED DOWN AFTER THEY HAD LEFT. NO NEW CHANGES OR CONCERNS.
--- NOTE | 2019-08-04 19:13 | NUR ---
CONFIRMED VIDEO MONITORING CALLED AND CONFIRMED VIDEO MONITORING WITH SCU POWER PLANT ENGINEER BRIANNA.
--- NOTE | 2019-08-05 04:30 | NUR ---
SHIFT SUMMARY ADMITTED FOR DANGER TO SELF. FULL CODE. A&O TO SELF ONLY. 2 ASSIST FOR ATTENDS CHANGES, BEDREST, RA, INCONTINENT OF BOWEL AND BLADDER, AC CHEMSTICKS, FINGER FOODS DIET. AWAITING PLACEMENT. REPORTED TO ENGAGE IN PICA (SEE PREVIOUS NOTES). NO IV ACCESS. HX: DEMENTIA, DM2.
--- NOTE | 2019-08-05 09:45 | NUR ---
PT UNABLE TO SWALLOW METFORMIN XR WHOLE, SHE MOVED IT AROUND HER MOUTH THEN TOOK IT OUT. PILL CANNOT BE CRUSHED.
--- NOTE | 2019-08-05 17:13 | NUR ---
SHIFT SUMMARY. PT CONTINUES WITH NO S/SX OF DISTRESS OR DISCOMFORT. PT ALERT, DISORIENTATED. NO NEW CHANGES OR CONCERNS.
--- NOTE | 2019-08-06 05:00 | NUR ---
SALES DEVELOPMENT DIRECTOR SUMMARY NO ACUTE CHANGES THIS SHIFT. PT AAO TO SELF ONLY. ALERT BUT NOT ORIENTED AT ALL. NONSENSICAL SPEECH BUT PT WAS ABLE TO ANSWER SOME BASIC YES/NO QUESTIONS. PLEASANT BUT IS IRRITABLE WITH CARE AT TIMES. VSS, WILL CONTINUE TO MONITOR.
--- NOTE | 2019-08-06 18:27 | NUR ---
SHIFT SUMMARY. ALERT, DISORIENTATED. PT INCONTINENT, INCONTINENCE CARE PROVIDED. PT'S MEAL INTAKE INCREASED WITH SUPERVISION, IT TAKES ABOUT AN HOUR FOR PT TO COMPLETE MEALS. ORAL CARE PERFORMED AFTER EACH MEAL. PT UP TO CHAIR WITH EACH MEAL, IS UNABLE TO LEAVE IN CHAIR UNATTENDED. PT DID NOT TOLERATE GLUCOPHAGE CRUSHED IN PUDDING OR APPLESAUCE, PT DID TOLERATE DISSOLVED IN 240ML APPLE JUICE. PT WITH NO S/SX OF DISTRESS OR DISCOMFORT. NO NEW CHANGES OR CONCERNS.
--- NOTE | 2019-08-07 06:22 | NUR ---
COMMERCIAL REPORTER SUMMARY NO ACUTE CHANGES THIS SHIFT. PT AAOX1 AND VERY CONFUSED. PT INCONTINENT, REQUIRES FREQUENT TURNS AND CHANGES. PT DID WELL WITH MEDICATIONS CRUSHED AND DISSOLVED IN APPLE JUICE. VSS, WILL CONTINUE TO MONITOR.
--- NOTE | 2019-08-07 13:35 | NUR ---
Met pt. at lunch and she is doing fine offered prayers./
--- NOTE | 2019-08-07 19:19 | NUR ---
PT. BACK IN BED. NO CHANGES THIS SHIFT. PT. IS NONVERBAL AND HAS TO BE TOLD WHEN TO TAKE A BITE OF FOOD.
--- NOTE | 2019-08-08 05:33 | NUR ---
SHIFT SUMMARY PT IS A 59 Y/O FEMALE, ADMITTED FOR DANGER TO SELF AND INABILITY TO CARE FOR HERSELF. PT IS 1&O X SELF ONLY, MINIMALLY VERBAL, ONLY ANSWERING YES OR NO QUESTIONS. PT IS RESISTANT TO PERSONAL CARE, ATTENDS CHANGES AND TURNING. NO COMPLAINTS OF S/S OF PAIN, NAUSEA OR RESPIRATORY DISTRESS. VITAL SIGNS STABLE. NO ACUTE CHANGES IN PT CONDITION NOTED. WILL CONTINUE TO MONITOR AND TREAT PER EMAR UNTIL HAND OFF TO DAY SHIFT RN.
--- NOTE | 2019-08-08 13:11 | NUR ---
Pt. in bed resting encouraged pt. and offered prayers
--- NOTE | 2019-08-08 19:05 | NUR ---
PT. BACK IN BED AFTER BEING UP FOR DINNER. PT. HAS HAD SEVERAL BM'S TODAY, BM'S STICKY BUT NOT LIQUID. NO CHANGES THIS SHIFT.
--- NOTE | 2019-08-09 06:12 | NUR ---
SHIFT SUMMARY ALERT TO SELF, UNABLE TO MAKE NEEDS KNOWN. COOPERATIVE WITH CARES; HOWEVER APPEARS FEARFUL AT TIMES. NO C/O PAIN/DISCOMFORT. APPEARED TO REST SOME OF SHIFT. VSS/AFEBRILE. NO ACUTE CHANGES NOTED OVERNIGHT. BED IN LOWEST POSITION; ALARM ON. CALL LIGHT WITHIN REACH; HOWEVER DOES NOT USE. WCTM. REPORT TO ONCOMING RN.
--- NOTE | 2019-08-09 09:44 | NUR ---
EMPTIED BEDSIDE CAMMODE WITH MEDIUM BROWN STOOL PRESENT FROM SHELLFISH SHUCKER
--- NOTE | 2019-08-09 13:07 | NUR ---
Met pt in bed resting and pt. is doing well prayed fo4er her.
--- NOTE | 2019-08-09 19:34 | NUR ---
PT. LYING QUIETLY. NO CHANGES THIS SHIFT. LOVENOX STARTED.
--- NOTE | 2019-08-10 05:32 | NUR ---
SHIFT SUMMARY ALERT THIS SHIFT TO SELF, ANSWERS QUESTIONS TO THE BEST OF HER KNOWLEDGE. COOPERATIVE WITH CARE. NO C/O PAIN/DISCOMFORT. APPEARED TO REST MUCH OF NIGHT. VSS/AFEBRILE. NO ACUTE CHANGES NOTED OVERNIGHT. AWAITING PLACEMENT. BED IN LOWEST POSITION; ALARM ON. CALL LIGHT AND BELONGINGS WITHIN REACH; DOES NOT USE. WCTM. REPORT TO ONCOMING RN.
--- NOTE | 2019-08-10 09:30 | NUR ---
PT MOSTLY QUIET. DENIES PAIN. ANSWERS OCCATIONAL. OFTEN GIBBERISH/NONSENSICAL. DOES POINT TO TV AND SAY: SEE. LOOK. PRETTY. H/R REG, NO MURMER NOTED. NO TELE. LUNGS CLEAR, RESP EASY, UNLABORED. ON R.A. BT HYPO. LAST BM UNKNOWN BY PT. VOIDS ATTENDS. TURN AND CHANGE REGULARLY . BED IN LOW POSITION, CALL LITE IN REACH, BED ALARM ON FOR SAFETY
--- NOTE | 2019-08-10 18:11 | NUR ---
PT PLEASANTLY CONFUSED. DID HAVE TO HOLD HANDS FROM ABD WHEN GIVING SHOT. CONTINUED TO TALK TO HER AND SHE DID WELL. MUMBLES INCOHEARANTLY, WATCHING TV THIS DAY MOST OF DAY. BED IN LOW POSITION, CALL LITE IN REACH, CALLS APPROP
--- NOTE | 2019-08-10 22:25 | NUR ---
BEGINNING SHIFT SUMMARY ASSUMED CARE OF PT AT 1900. PT IS ALERT BUT NOT ORIENTED, CANNOT ANSWER QUESTIONS APPROPIATLY, SOMETIMES FOLLOWS DIRECTIONS. LUNG SOUNDS CLEAR, HEART SOUNDS REGULAR. PT GRINDS TEETH CONSTANTLY. PT IS BEDFAST, MEPILEX ON BOTTOM. CALL LIGHT IN REACH, BED IN LOWEST POSTION, WILL CONTINUE TO MONTITOR.
--- NOTE | 2019-08-11 04:39 | NUR ---
END SHIFT SUMMARY NO ACUTE CHANGES NOTED T/O THE NIGHT. PT SLEPT T/O THE NIGHT. PT REPOSITIONED T/O THE NIGHT. VITALS STABLE. CALL LIGHT IN REACH, BED IN LOWEST POSTION, WILL CONTINUE TO MONITOR UNTIL DAYSHIFT NURSE ARRIVES.
--- NOTE | 2019-08-11 08:10 | NUR ---
PT PLEASANT CONFUSED. OFTEN ATTEMPTS TO REFUSE CARE. PUSHES AWAY. ABLE TO DISTRACT MOST OF TIME TO DO ASSESSMENT. SHE FOLLOWS TV AND POINTS AND OCC TALKS NONSENSICAL ABOUT WHAT SHE SEES. H/R REG, NO MURMER NOTED. NO TELE. NO PACER NOTED. LUNGS CLEAR, RESP EASY, UNLABORED. ON R.A. BT X4 LAST BM NOT KNOWN BY PT. VOIDS INCONT. IN ATTENDS. BED IN LOW POSITION, CALL LITE IN REACH, BED ALARM ON FOR SAFETY
--- NOTE | 2019-08-11 18:26 | NUR ---
PT CONTINUES NONSENSICAL. DID WATCH TV MUCH OF DAY. TURNING REGULARLY, SHE CONTINUES TO SHUFFLE ABOUT BED A LOT. BED ALARM ON FOR SAFETY. HOLDING HER TWO STUFFED TOYS. NO OTHER CONCERNS AT THIS TIME. BED IN LOW POSITOIN, CALL LITE IN REACH, CALLS APPROP
--- NOTE | 2019-08-12 03:28 | NUR ---
SHIFT SUMMARY ASSUMED CARE OF PT AT 1900. PT IS ALERT BUT NOT ORIENTED TO ANYTHING, PT HAS NONSENSICAL SPEECH AND GRIDS HER TEETH CONSTANTLY. HEART SOUNDS REGULAR, LUNG SOUNDS CLEAR. PT SLEPT T/O THE NIGHT. VITAL SIGNS STABLE. CALL LIGHT IN REACH, BED IN LOWEST POSTION, WILL CONTINUE TO MONITOR UNTIL DAYSHIFT NURSE ARRIVES.
--- NOTE | 2019-08-12 18:17 | NUR ---
NO ACUTE CHANGES THIS SHIFT. VSS, ON RA. UP TO CHAIR WITH GB AND 2 ASSIST. AWAITING PLACMENT.
--- NOTE | 2019-08-13 03:43 | NUR ---
SHIFT SUMMARY NO ACUTE CHANGES NOTED T/O THE NIGHT. PT SLEPT MOST OF THE NIGHT EXCEPT TO BE REPOSITIONED AND CHANGED. DAYSHIFT NURSE STATED THAT PT IS VERY DECONDITIONED AND WOULD BENIFIT FROM GETTING OUT OF BED AND WALKING MORE. LUNG SOUNDS CLEAR, HEART SOUNDS REGULAR, PT STILL GRINDS HER TEETH CONSTANTLY. CALL LIGHT IN REACH, BED IN LOWEST POSTION, WILL CONTINUE TO MONITOR UNTIL DAYSHIFT NURSE ARRIVES.
--- NOTE | 2019-08-14 04:06 | NUR ---
SHIFT SUMMARY ASSUMED CARE PF PT AT 1900. PT IS ALERT BUT NOT ORIENTD TO ANYTHING, SHE CAN STATE NONSESICAL SENTENCES AND FOLLOW DIRECTIONS SOMETIMES, OT IS CONSTANTLY GRINDING HER TEETH. HEART SOUNDS REGULAR, LUNG SOUNDS CLEAR. PT BOTTOM WAS SLIGHTLY RED, CREAM APPLIED AND PT WAS REPOSITIONED SEVERAL TIMES. PT SLEPT T/O THE NIGHT EXCEPT WHEN BEING CHANGED. CALL LIGHT IN REACH, BED IN LOWEST POSITION, BED ALARM ON, WILL CONTINUE TO MONITOR UNTIL DAYSHIFT NURSE ARRIVES.
--- NOTE | 2019-08-14 11:49 | NUR ---
Mrt pt. sitting up in a chair and watching T.V. and doing muchn better encouraged pt. and offered prayers .
--- NOTE | 2019-08-14 17:52 | NUR ---
PT WAITING FOR PLACEMENT. [facility] HERE TO EVALUATE PT THIS AFTERNOON. SEE CM NOTES. ACUTE CHANGES NOTED THIS SHIFT, WILL CONTINUE TO MONITOR AND REPORT TO ONCOMING RN
--- NOTE | 2019-08-15 04:05 | NUR ---
WRAPPER LAYER AND EXAMINER SOFT WORK SUMMARY PT A/O X4 BUT NEEDS FREQUENT REDIRECTIONS. HISTORY OF DEMENTIA AND BIPOLAR. WAS UP FOR MAJORITY OF NIGHT. PT APPEARED CONFUSED THROUGHOUT THE NIGHT SHE SPOKE SENTENCES THAT DID NOT MAKE SENSE. PREVIOUS IV INFILTRATED AND DC'D WITHIN NORMAL LIMITS. NEW IV 22 G INSERTED TO R FOREARM. WHEN I ASKED HER HOW COME SHE WAS STILL AWAKE SHE RESPONDED "I JUST GET LIKE THIS SOMETIMES". MEDICATED FOR PAIN 2X WITH TYLENOL PO. STAFF WAS IN PT'S ROOM MOST OF THE NIGHT SHE HAS FREQUENT VOIDINGS AND INCONTIENT OF BLADDER. NO COMPLAINTS OF SOB, CHEST PAIN, NAUSEA. PT COMPLAINED OF DIZZINIESS WHEN WE TRANSFERRED HER TO THE COMMODE. PT WILL NOT BARE WEIGHT ON HER R FOOT DUE TO PAIN. WILL CONTINUE TO MONITOR.
--- NOTE | 2019-08-15 04:36 | NUR ---
SUPERVISOR GENERAL SUMMARY PT A/O X1 TO SELF. WILL ANSWER YES OR NO QUESTIONS. HELD PT'S SEROQUIL TONIGHT BECAUSE BP WAS 102/59. PT HAD A TEMP OF 100.2. TYLENOL PO GIVEN. TEMP CAME DOWN TO 98.0 WHEN RE-ASSESSED. MEDS CRUSHED WITH APPLESAUCE. HOWEVER, PT WAS HESITANT ON TAKING APPLESAUCE AND THICKEND JUICE THAT I OFFERED WITH CRUSHED MEDS. NEEDS LOTS OF COAXING. PT DID NOT COMPLAIN OF PAIN OR DISCOMFORT. VSS, WILL CONTINUE TO MONITOR.
--- NOTE | 2019-08-15 06:55 | NUR ---
Pt gave permission for me to provide care 08/15/19
--- NOTE | 2019-08-15 13:05 | NUR ---
Pt. is in bed resting seems to be doing much better. offered prayers .
--- NOTE | 2019-08-15 18:49 | NUR ---
SHIFT SUMMARY PT UP IN RECLINER BETWEEN LUNCH AND LATE AFTERNOON. TOLERATED WITH NO PROBLEM. MONITERED BY CAMERA. DOES GRIND HER TEETH. RESISTIVE TO TRANSFERS AND APPEARS FEARFUL AT TIMES. INCONTINENT OF URINE. NO FAMILY IN TO VISIT.
--- NOTE | 2019-08-16 05:02 | NUR ---
SHIFT SUMMARY PT REMAINS CONFUSED. MOSTLY JUST LAYS IN THE BED AND FIDDLES WITH HER STUFFED ANIMALS OR SLEEPS. INCONTINENT OF BOWEL AND URINE THROUGHOUT THE NIGHT. HEAVY WETTER. ATTENDS IN PLACE. SEVERAL SMALL SOFT BROWN BM'S THIS SHIFT. PT WILL ANSWER QUESTIONS WHEN ASKED BUT HER RESPONSES DO NOT MATCH THE QUESTION. PT RESISTANT TO CARE. PUSHES AGAINST THE BED WHEN BEING TURNED TO CHANGE ATTENDS. SLEPT OFF AND ON THIS EVENING. VITAL SIGNS STABLE. NO ACUTE CHANGES THIS SHIFT. WILL CONTINUE TO MONITOR.
--- NOTE | 2019-08-16 13:48 | NUR ---
Pt. in bed resting and is doing better ,offered prayers.
--- NOTE | 2019-08-16 17:32 | NUR ---
SHIFT SUMMARY PT WAS GIVEN A SHOWER THIS MORNING AND SLEPT FOR SEVERAL HOURS INCLUDING THROUGH LUNCH. NO CALLS FROM FAMILY NOTED. ALL MOVEABLE ITEMS KEPT BEYOND REACH. FOOD SUPPLIED TO PT FOR CONSUMPTION WITHOUT DINNERWARE FOR SAFETY. STUFFED PETS WITHIN REACH.
--- NOTE | 2019-08-17 05:01 | NUR ---
SHIFT SUMMARY NO ACUTE CHANGES THIS SHIFT. PT PLEASANTLY CONFUSED. CONTINUES TO BE FEARFUL W/ CARE. FREQUENT SMALL BOWEL MOVEMENTS. INCONTINENT OF URINE AND STOOL. ATTENDS CHANGED NEEDED. PT TURNS SELF IN BED. REMAINS ON HDEZ WITH NO EVENTS THIS EVENING. SOME REDNESS TO BUTTOCKS. BARRIER CREAM APPLIED. CONTINUES TO BE A PLACEMENT ISSUE. VSS. WILL CONTINUE TO MONITOR.
--- NOTE | 2019-08-17 18:13 | NUR ---
SHIFT SUMMARY PATIENT HAD AN UNEVENTFUL SHIFT. VITALS HAVE BEEN STABLE AND WNL. NO INCIDENCES OF TRYING TO GET OUT OF BED WITHOUT ASSISTANCE. EATS A SMALL AMOUNT OF FOOD BUT MOSTLY FLUIDS WITH MEALS. PATIENTS VERBAL COMMUNICATION IS LIMITED AND ON THE PATIENT'S TERMS. THERE HAVE BEEN NO ACUTE CHANGES NOTED OR REPORTED AT THIS TIME.
--- NOTE | 2019-08-18 06:02 | NUR ---
NOC SHIFT SUMMARY PT IS AAOX2. SEEMS TO BE ORIENTED TO SELF AND FOLLOWING DIRECTIONS SOMWHAT. IN BED THIS NIGHT AND HAS SLEPT OFF AND ON. TAKES MEDS CRUSHED IN APPLE SAUCE WITH LITTLE DIFFICULTY. INCONTINENT OF BOWEL AND BLADDER. VSS. NO ACUTE CHANGES NOTED THIS NIGHT. PT PRESENTLY APPEARS TO BE SLEEPING AND IN NO ACUTE DISTRESS. WILL CONTINUE TO MONITOR.
--- NOTE | 2019-08-18 17:51 | NUR ---
SHIFT SUMMARY NO ACUTE EVENTS OCCURED DURING THIS SHIFT. PATIENT'S VITALS WERE STABLE AND WNL. NO ATTEMPTS TO GET OUT OF BED UNASSISTED. PATIENT AWAITING PLACEMENT FOR DISCHARGE. WILL CONTINUE TO MONITOR AND PROVIDE CARE NEEDED.
--- NOTE | 2019-08-19 06:29 | NUR ---
SHIFT SUMMARY PT HAS REMAINED IN BED THIS NIGHT WITH NO ACUTE CHANGES NOTED. VSS. NO COMPLAINT OF PAIN OR DISCOMFORT. REMAINS CONFUSED. WITH ENCOURAGEMENT DRANK A CUP OF WATER. APPEARS IN NO ACUTE DISTRESS. WILL CONTINUE TO MONITOR.
--- NOTE | 2019-08-19 17:09 | NUR ---
SHIFT SUMMARY THERE HAVE BEEN NO ACUTE CHANGES THIS SHIFT. VITALS HAVE BEEN STABLE. PATIENT STILL AWAITING FOR PLACEMENT FOR DISCHARGE.
--- NOTE | 2019-08-20 05:43 | NUR ---
NOC SHIFT SUMMARY NO ACUTE CHANGES THIS SHIFT. VSS. PT SLEPT MUCH OF NIGHT. AWAITING PLACMENT. PRESENTLY SLEEPING AND APPEARS IN NO ACUTE DISTRESS. WILL CONTINUE TO MONITOR.
--- NOTE | 2019-08-20 19:07 | NUR ---
SHIFT SUMMARY PT HAS BEEN UP IN THE CHAIR MOST OF THE DAY. PT HAD A SHOWER. PT HAD A GOOD APPETITE. HAS BEEN CONFUSED AND DOES NOT FOLLOW DIRECTIONS. BOWEL MOVEMENT THIS EVENING. NO ACUTE CHANGES THIS SHIFT. WAITING FOR PLACEMENT. CALL LIGHT IN REACH AND BED ALARM ON FOR SAFETY. REPORT GIVEN TO CHRISSY HUERTA.
--- NOTE | 2019-08-21 05:27 | NUR ---
SHIFT SUMMARY NO ACUTE CHANGES THIS SHIFT. PT. ASLEEP T/O THE NIGHT. NO APPARENT DISTRESS NOTED. ATTENDS IN PLACE. CALL LIGHT WITHIN REACH, SIDE RAILS UP X2, AND BED ALARM ON FOR SAFETY. WILL CONT TO MONITOR.
--- NOTE | 2019-08-21 13:22 | NUR ---
Met pt . sitting yines in a chair watching T.V. she is better today offered prayers
--- NOTE | 2019-08-21 16:58 | NUR ---
SHIFT SUMMARY- PT AWAKE T/O THE DAY, DIFFICULT TO UNDERSAND AND GRINDS TEETH. PT UP TO CHAIR WITH 1-2 ASSIST. INCONT OF URINE AND STOOL. LS CLEAR, ON RA. HRR. PT DENIES ANY COMPLAINTS T/O THE DAY. PT AWAITING PLACEMENT.
--- NOTE | 2019-08-22 06:23 | NUR ---
SHIFT SUMMARY NO ACUTE CHANGES IN PT ASSESSMENT. SHE HAS RESTED IN BED FOR MOST THE NIGHT. A/O TO SELF. DOES NOT FOLLOW DIRECTION WELL. SPEECH IS NONSENSICAL, DOES NOT ANSWER ANY OF MY QUESTIONS. VITALS HAVE BEEN STABLE. STILL AWAITING PLACEMENT. NO CALLS OR VISITS FROM RELATIVES THIS SHIFT. BED IN LOWEST POSITION, CALL LIGHT WITHIN REACH. WILL CONTINUE TO MONITOR AND REPORT TO ONCOMING RN.
--- NOTE | 2019-08-22 15:04 | NUR ---
Pt. is in bed watching T.V Offered prayers and blessing
--- NOTE | 2019-08-22 18:07 | NUR ---
NO NOTEABLE CHANGES THIS SHIFT. NO VISITORS TO SEE PATIENT.
--- NOTE | 2019-08-22 21:43 | NUR ---
2043: PT SITTING UP IN BED. CRUSHED MEDS IN CHOCOLATE PUDDING AND PT TOOK MEDS AND FINISHED PUDDING AND DRANK ABOUT 60 ML OF WATER. WE CHANGED HER LINENS AND SHE HAD A MEDIUM NON FORMED PASTY BROWN BM. HER BOTTOM IS RED AND BLUE CAP LOTION WAS APPLIED. SHE DENIES PAIN. SHE IS UN-ABLE TO TELL ME HER NAME TONIGHT, SHE GIGGLES AND IS PLEASANT AND COOPERATIVE SHE IS ABLE. SHE IS RESISTIVE TO TURNING BUT QUICKLY FORGETS THIS ONCE SHE IS COMFORTABLY POSITIONED. SHIFT ASSESSMENT COMPLETED. BED LOW LOCKED AND ALARMED. WILL CONTINUE TO MONITOR.
--- NOTE | 2019-08-22 23:27 | NUR ---
2220: PT RESTING QUIETLY, SELF TURNS. LINEN CHECKED.
--- NOTE | 2019-08-23 00:20 | NUR ---
PT SLEEPING. SELF TURNS IN THE BED. LINEN CHECKED. BED LOW AND LOCKED AND ALARMED. CALL DELATORRE WITHIN REACH
--- NOTE | 2019-08-23 05:52 | NUR ---
END OF SHIFT NOTE: PT RESTED QUIETLY TONIGHT. SHE MOVES AROUND IN THE BED TO MAKE HERSELF COMFORTABLE. PT HAS BEEN NON-VERBAL OTHER THAN AN OCCASIONAL YES OR NO OR "DONT DO THAT". SHE IS RESISTIVE TO RECEIVING CARE, BUT SETTLES DOWN ONCE ITS COMPLETED AND AND SHE IS COMFORTABLE AGAIN. NO ACUTE CHANGES FOR HER TONIGHT. BED IS LOW AND ALARMED.
--- NOTE | 2019-08-23 14:47 | NUR ---
Pt. is doing much better encouraged her and offered prayers
--- NOTE | 2019-08-23 19:22 | NUR ---
NO NOTEABLE CHANGES THIS SHIFT.
--- NOTE | 2019-08-24 04:56 | NUR ---
HEALTHCARE MANAGER SUMMARY NO ACUTE CHANGES. PT AAOX1 AND COMPLETELY CONFUSED. IN NO APPARENT DISTRESS, DENIES PAIN. REQUIRES FREQUENT ATTENDS AND LINEN CHANGES DUE TO INCONTINENCE. PT OFTEN RESISTANT TO CHANGES. RESTS PEACEFULLY MOST OF THE TIME. VSS, WILL CONTINUE TO MONITOR.
--- NOTE | 2019-08-24 08:15 | NUR ---
PT PLEASANT THIS AM. ADVANCED DEMENTIA, CONFUSED. DENIES PAIN. STATES LOVE DALILA. PASTORAL CARE CALLED TO VISIT. H/R REG, NO MURMER NOTED. NO TELE. LUNGS CLEAR, RESP EASY, UNLABORED. ON R.A. BT X4 LAST BM UNKNOWN BY PT. VOIDS INCONT ATTENDS IN PLACE, CDI AT THIS TIME. BED IN LOW POSITION, CALL LITE IN REACH, BED ALARM ON FOR SAFETY
--- NOTE | 2019-08-24 13:30 | NUR ---
Spiritual care visit conducted. Upon receiving a referral from patient's RN for spiritual care, I visit patient. Patient is confused and has very scattered thoughts but statements grounded in reality are mixed in our conversation. As we talked her face lit up when she talked about Shawn. She repeat often that she loves Shawn. She stated that he is with her. Other topics were hit and miss but she could talk about Shawn. I asked patient if I could pray for her and she smiled and said, "Yes." I gladly provided prayer. I also provided a calming presence and companionship. I will continue to remain available to patient and family.
--- NOTE | 2019-08-24 19:19 | NUR ---
PT MOSTLY PLEASANT, SOMETIMES IRRITABLE. FIGHTS CARE WHEN NEEDS CLEANED AND CHANGED. TRY TO TALK HER THROUGH BUT DOES NOT MUCH GOOD. NO OTHER CONCERNSAT THIS TIME. BED IN LOW POSITION, CALL LITE IN [place], BED ALARM ON FOR SAFETY.
--- NOTE | 2019-08-25 05:03 | NUR ---
GROCERY BAGGER SUMMARY NO ACUTE CHANGES. PT AAOX1. 2 ASSIST WITH ATTENDS CHANGES AND REPOSITIONING THROUGH THE NIGHT. AWAITING PLACEMENT IN [facility].
--- NOTE | 2019-08-25 09:00 | NUR ---
PT PLEASANT ALERT TO SELF TO SOME DEGREE AT THIS TIME. SITTING UP IN BED NOW. DENIES PAIN. H/R REG, NO MURMER NOTED. NO TELE. LUNGS CLEAR, RESP EASY UNLABORED ON R.A. BT X4 LAST BM UNKNOWN BY PT. INCONT OF URINE. IN ATTENDS. CDI AT THIS TIME. PT EATS ANYTHING WITHIN REACH, NOTHING IN REACH AT THIS TIME. PENDING PLACEMENT. BED IN LOW POSITIOIN, CALL LITE IN REACH, BED ALARM ON FOR SAFETY
--- NOTE | 2019-08-25 18:09 | NUR ---
PT PLEASANT COOP TO SOME DEGREE. FULL BED BATH GIVEN TODAY. CONTINUES TO PUT IN MOUTH ANYTHING IN REACH, SO PRECAUTIONS ARE ALWAYS PRESENT. PENDING SNF PLACEMENT. BED ALARM ON FOR SAFETY. BED IN LOW POSITION, CALL LITE IN REACH, BED ALARM ON FOR SAFETY
--- NOTE | 2019-08-26 05:03 | NUR ---
SHIFT SUMMARY PT HAS RESTED FOR MOST OF THE NIGHT. PT IS ABLE TO FOLLOW SOME DIRECTION IF GIVEN TIME. NO CHANGES IN PT ASSESSMENT. SLEEPS MOST OF THE NIGHT. NO CALLS OR VISITS FROM FAMILY. VITALS STABLE. PLAN OF CARE UNCHANGED. STILL AWAITING PLACEMENT. BED IN LOWEST POSITION, CALL LIGHT WITHIN REACH. WILL CONTINUE TO MONITOR AND REPORT TO ONCOMING RN.
--- NOTE | 2019-08-26 08:30 | NUR ---
PT PLEASANT COOP SMILES ON OCCATION, LOOKS AT TV AND SOMETIMES SAYS ANIMAL NAME SEES ON TV AT THAT TIME, DENIES PAIN. NONSENSICAL RESPONSES. LIGHTS UP WHEN SAYS DALILA. "LOVES DALILA". H/R REG, NO MURMER NOTED. NO TELE. LUNGS CLEAR, RESP EASY, UNLABORED ON R.A. BT X4 LAST BM NOT KNOWN BY PT. VOIDS INCONT. ATTENDS CLEAN DRY AT THIS TIME. BED IN LOW POSITION, CALL LITE IN REACH, BED ALARM ON FOR SAFETY.
--- NOTE | 2019-08-26 18:00 | NUR ---
PT LABILE. OFTEN PLEASANT CONFUSED, SOMETIMES IRRITATED. TALKS WORDS ABOUT WHAT SEES ON TV;. GETTING HER UP TO CHAIR. NO OTHER CONCERNS AT THIS TIME . BED IN LOW POSITION, CALL LITE IN REACH, BED ALARM ON FOR SAFETY
--- NOTE | 2019-08-27 04:54 | NUR ---
SHIFT SUMMARY NO ACUTE CHANGES TO REPORT THIS SHIFT. PT ASSESSMENT REMAINS UNCHANGED. PT LAUGHS AND SMILES WHEN TALKED TO AT TIMES. ANSWERS TO HER NAME, MAKES CONVERSATION BUT MOST IS NONSENSICAL. FOLLOWS DIRECTION WHEN TIME ALLOWED. HUGS AND CUDDLES STUFFED ANIMALS. SLEEPS MOST OF THE NIGHT. BED IN LOWEST POSITION, CALL LIGHT WITHIN REACH. WILL CONTINUE TO MONITOR AND REPORT TO ONCOMING RN.
--- NOTE | 2019-08-27 18:35 | NUR ---
SHIFT SUMMARY. ALERT, CONFUSED, BASELINE. NO S/SX OF DISTRESS OR DISCOMFORT. PLEASANT AND COOPERATIVE. NO NEW CHANGES OR CONCERNED.
--- NOTE | 2019-08-28 06:46 | NUR ---
SHIFT SUMMARY NO ACUTE CHANGES THIS SHIFT. ALERT TO SELF ONLY. DOES NOT FOLLOW DIRECTIONS WELL, NEEDS MANY QUES & REDIRECTING. DOES NOT ANSWER QUESTIONS APPROPRIATELY. TOOK MEDS CRUSHED IN APPLESAUCE. VSS. NO S/S OF PAIN, NAUSEA OR DYSPNEA. CHECKED CBG @ WAS 122. ATTENDS CHANGED Q2H PRN. HAS VERY RED EXCORIATED COCCYX & RECTAL AREA-BARRIER CREAM APPLIED. BED ALARM PLACED, CALL LIGHT IN REACH.
--- NOTE | 2019-08-28 09:41 | NUR ---
08/28/2019 Offered oral care and hair care to patient, she declined both.
--- NOTE | 2019-08-28 13:20 | NUR ---
Met pt. at meal sitting in a chair and is doing much betters offered prayers.
--- NOTE | 2019-08-28 18:41 | NUR ---
SHIFT SUMMARY. NO ACUTE CHANGES.
--- NOTE | 2019-08-29 05:10 | NUR ---
SHIFT SUMMARY NO ACUTE CHANGES THIS SHIFT. ALERT TO SELF ONLY. DOES NOT FOLLOW DIRECTIONS & NEEDS MANY QUES FOR CHANGING OR REPOSITIONING. HAS ADVANCED DEMENTIA. VSS. NO S/S OF PAIN, DYSPNEA OR N/V. COOPERATIVE W/CARE. CALL LIGHT IN REACH & BED ALARM IN PLACE. WCTM.
--- NOTE | 2019-08-29 13:10 | NUR ---
Met pt. sitting in a chair watching T.V she is doing fine encouraged pt. and offered prayers
--- NOTE | 2019-08-29 17:11 | NUR ---
PT HAS IS ALERT, CONFUSED , PT IS UP WITH ASSIST TO THE CHAIR FOR MEALS, THE PT APPEARS TO BE BREATHING EASILY ON RA AT THIS TIME, PT HAS BEEN COOPERATIVE, NO SIGN OF DISTRESS, BED ALARM ON, CALL LIGHT IN REACH
--- NOTE | 2019-08-30 04:36 | NUR ---
SHIFT SUMMARY: VSS. AFEB. A/O TO SELF AT BASELINE. NO S/S OF PAIN. HAS SLEPT WELL THROUGH MUCH OF THE NIGHT. NO ATTEMPTS TO SELF T/F OUT OF BED. INCONT OF B/B AT BASELINE. T6 BM STEADILY, SKIN ON BUTTOCKS RED AND ANGRY. BARRIER CREAMS APPLIED. NO ACUTE CHANGES OVERNIGHT, WILL CONT TO MONITOR.
--- NOTE | 2019-08-30 11:41 | NUR ---
Pt. s doing much better encouraged and offered prayers .
--- NOTE | 2019-08-30 17:20 | NUR ---
PT IS ALERT, REPLIES TO SOME QUESTIONS BUT IS MOSTLY NON-VERBAL SEVERE DEMENTIA, THE PT APPEARS TO BE BREATHING EASILY ON RA AT THIS TIME, THE PT APPEARS TO BE COMFORTABLE, PT DOES HOWEVER HAVE SORENESS AND EXCORIATION IN HER RECTAL AREA, BARRIER CREAMS APPLIED TO THE AREA, THE PT HAS BEEN UP INTO THE CHAIR FOR ALL MEALS, BED ALARM ON , CALL LIGHT IN REACH
--- NOTE | 2019-08-31 04:38 | NUR ---
SHIFT SUMMARY: VSS. AFEB. PT SMILING AND LAUGHING AT THE TV WHILE AWAKE. HOLDING STUFFED ANIMALS. SEVERE DEMENTIA. SPEAKING MINIMALLY AND NON-SENSICALLY. COOPERATIVE W/CARES. BARRIER CREAMS APPLIED TO BUTTOCKS. NO ACUTE CHANGES OVER NIGHT. BED LOW, BED ALARM ON. WILL CONT TO MONITOR.
--- NOTE | 2019-08-31 10:40 | NUR ---
Pt. is doing fine sitting up and watching Rubio moe for pt.
--- NOTE | 2019-08-31 17:25 | NUR ---
PATIENT IS ALERT. SHE IS ORIENTED TO SELF WITH NONSENSICAL COMMUNICATION. ATTENDS IN PLACE. SHE HAD A BM TODAY. SKIN BREAKDOWN ON HER COCCYX. PATIENT IS EASILY REDIRECTABLE. PATIENT HAD A SHOWER TODAY. WILL CONTINUE TO MONITOR
--- NOTE | 2019-09-01 04:21 | NUR ---
SHIFT SUMMARY ADMITTED FOR DANGER TO SELF. FULL CODE. PT ENGAGES IN PICA. SON HAS GUARDIANSHIP, AWAITING PLACEMENT, SHE IS A&O TO SELF. GLUCOSE TEST BEFORE BREAKFAST. SHE INCONTINENT OF URINE AND BM. BARRIER CREAM APPLIED TO COCCYX WITH EACH ATTENDS CHANGE. 2 PERSON ASSIST. RA, NO IV ACCESS, NEEDS ASSISTANCE W/MEALS, WE HAVE BEEN CRUSHING MEDS IN APPLESAUCE. HX: ALZHEIMERS, DEMENTIA, DM2.
[2019-09-01 06:23] LABS: Albumin, Blood 3.4 g/dL (3.4-5.0); Anion Gap 7 mmol/L (6-16); Blood Urea Nitrogen 31 mg/dL (8-24); CO2, Blood 28 mmol/L (21-32); Calcium, Blood 9.4 mg/dL (8.5-10.1); Chloride, Blood 105 mmol/L (98-108); Creatinine, Blood 0.52 mg/dL (0.40-1.00); Glomerular Filtration Rate >60 (60-); Glucose, Blood 92 mg/dL (70-99); Phosphorus, Blood 3.9 mg/dL (2.5-4.9); Potassium, Blood 3.9 mmol/L (3.5-5.5); Sodium, Blood 140 mmol/L (136-145)
--- NOTE | 2019-09-01 18:06 | NUR ---
SHIFT SUMMARY PT ALERT AND ORIENTED TO SELF AND FAMILY/FRIENDS, PT OCCASIONALLY RESPONDS APPROPRIATELY BUT LARGELY UNABLE TO CONNECT RESPONSE. NO ACUTE CHANGES OBSERVED. PT ABLE TO MAKE SOME MEANINGFUL CHANGES IN POSITION. CASSI CARE COMPLETED Q 2 HOURS PT INCONTINENT. CALL LIGHT IN REACH AND PT UP IN CHAIR FOR MEALS. LN TO CONTINUE TO MONITOR
--- NOTE | 2019-09-02 04:16 | NUR ---
SHIFT SUMMARY ADMITTED FOR DANGER TO SELF. FULL CODE. ENGAGES IN PICA. AWAITING PLACEMENT. SON HAS GUARDIANSHIP. A&O TO SELF. GLUCOSE CHECK BEFORE BREAKFAST ONLY. INCONTINENT OF BM AND URINE. REDNESS ON COCCYX, BARRIER CREAM APPLIED. NO IV ACCESS. MEDS CRUSHED IN APPLESAUCE. HX: ALZHEIMERS, DEMENTIA, DM2. SUPERVISE DURING MEALS. FINGER FOOD/ADA DIET.
--- NOTE | 2019-09-02 17:53 | NUR ---
NO ACUTE CHANGES NOTED THIS SHIFT. STILL AWAITING PLACEMENT, SEE CARE MANAGEMENT NOTES. WILL CONTINUE TO MONITOR AND REPORT TO ONCOMING RN
--- NOTE | 2019-09-03 06:16 | NUR ---
SHIFT SUMMARY ALERT, ANSWERS QUESTIONS TO THE BEST OF HER ABILITY. COOPERATIVE WITH CARE. NO C/O PAIN/DISCOMFORT WELL NO SIGNS. NO ACUTE CHANGES NOTED OVERNIGHT. VSS/AFEBRILE. BED IN LOWEST POSITION; ALARM ON. CALL LIGHT AND BELONGINGS WITHIN REACH. WCTM. REPORT TO ON COMING RN.
[2019-09-03 06:30] LABS: Albumin, Blood 3.4 g/dL (3.4-5.0); Anion Gap 7 mmol/L (6-16); Blood Urea Nitrogen 31 mg/dL (8-24); Bun/Creatinine Ratio 68.4 (12.0-20.0); CO2, Blood 28 mmol/L (21-32); Calcium, Blood 9.5 mg/dL (8.5-10.1); Chloride, Blood 105 mmol/L (98-108); Creatinine, Blood 0.45 mg/dL (0.40-1.00); Glomerular Filtration Rate >60 (60-); Glucose, Blood 84 mg/dL (70-99); Phosphorus, Blood 3.5 mg/dL (2.5-4.9); Potassium, Blood 3.6 mmol/L (3.5-5.5); Sodium, Blood 140 mmol/L (136-145)
--- NOTE | 2019-09-03 17:50 | NUR ---
NO ACUTE CHANGES THIS, AWAITING PLACEMENT.
--- NOTE | 2019-09-03 22:24 | NUR ---
PT. ASLEEP IN BED, NO APPARENT DISTRESS NOTED. CALL LIGHT WITHIN REACH, SIDE RAILS UP X2, AND BED ALARM ON FOR SAFETY. WILL CONT TO MONITOR.
--- NOTE | 2019-09-04 04:51 | NUR ---
SHIFT SUMMARY- NO ACUTE EVENTS OVERNIGHT. PT. CALM BUT CONFUSED, ASLEEP T/O THE MOST OF THE SHIFT. NO APPARENT DISTRESS NOTED. INCONTINENT OF URINE AND BOWEL. ATTENDS IN PLACE. PT. A 2 ASSIST WITH ATTENDS CHANGE AND REPOSITIONING. PLAN FOR PLACEMENT. CALL LIGHT WITHIN REACH, SIDE RAILS UP X2, AND BED ALARM ON FOR SAFETY. WILL CONT TO MONITOR.
--- NOTE | 2019-09-04 13:29 | NUR ---
Met pt in bed watching T[employer]. pt. seems to be doing fine offerewd prayers
--- NOTE | 2019-09-04 17:56 | NUR ---
SUMMARY PT SITTING UP IN BED EATING DINNER, HAS BEEN PLEASANTLY CONFUSED T/O THE DAY, PT INCONTINENT, OCC SPEAKS CLEARLY, MOST OF THE TIME NON VERBAL OR LAUGHING, NO VISITS OR PHONE CALLS, VSS, WILL CONT TO MONITOR
--- NOTE | 2019-09-05 06:09 | NUR ---
SHIFT SUMMARY- PT. HAD NO ACUTE EVENTS OVERNIGHT. SLEPT WELL T/O THE SHIFT. NO APPARENT DISTRESS NOTED. PT. INCONTINENT OF URINE AND BOWEL, ATTENDS IN PLACE. AWAITING ON PLACEMEMT. CALL LIGHT WITHIN REACH, SIDE RAILS UP X2, AND BED ALARM ON FOR SAFETY. WILL CONT TO MONITOR.
--- NOTE | 2019-09-05 11:53 | NUR ---
Met pt at lunch and skinny doing well encouraged pt. and prayed for her.
--- NOTE | 2019-09-05 17:41 | NUR ---
SUMMARY PT SITTING UP IN BED EATING DINNER, HAS BEEN PLEASANTLY CONFUSED T/O THE DAY, DOES NOT FOLLOW COMMANDS, RANDOM SPEECH, GRINDS HER TEETH, VSS, NO ACUTE CHANGES, WILL CONT TO MONITOR
--- NOTE | 2019-09-06 06:40 | NUR ---
SHIFT SUMMARY PATIENT ABLE TO SLEEP MOST OF THE NIGHT. MEDICATED PER EMAR FOR FEVER OF 100.3. STAYED IN BED ALL NIGHT. BED IN LOWEST POSITION WITH WHEELS LOCKED. CALL LIGHT WITHIN REACH. REPORT GIVEN TO PABLO HUERTA.
--- NOTE | 2019-09-06 07:29 | NUR ---
Report received from [facility] shift nurse, alert confused noncompliant, able to walk but unwilling to, assisted to shower, aid gave comeplete body wash, more compliant as proceede and learned it was not going to hurt, aid did a great job of encouraging and supporting, bed in low position, no IV, rm air, non complaint with assessment, no s/sx of pain, hr, extremitie pulses strong, able to move all limbs, weak from in activity, good profusion, abdmn soft non tender, bt+4q, perrl, ls diminished (no deep breaths), will continue to monitor and treat as appropriate
--- NOTE | 2019-09-06 13:25 | NUR ---
Pt in bed and is resting and watching Bel[place] moe for her.
--- NOTE | 2019-09-06 19:01 | NUR ---
alert and confused, knows name and that she is at the hospital, not happy to be here, grinding teeth unles given something to eat/chew on, call light in reach, no acute change noted in condition, no IV, rm air, sba to bathroom, share bsr with noc nurse in rm with pt listening, no acute change noted in pt condition
--- NOTE | 2019-09-07 06:50 | NUR ---
SHIFT SUMMARY PATIENT SLEPT WELL ALL NIGHT IN HER BED. BED IN LOWEST POSITION WITH WHEELS LOCKED AND ALARM ON. CALL LIGHT WITHIN REACH. REPORT GIVEN TO ONCOMING RN.
--- NOTE | 2019-09-07 19:13 | NUR ---
eating anything she can get her hands on, ate an alchol swab, informed cn and dr as well as next shift so she could be monitored no s/sx of ill effect noted, alarm on bed, changed and repositioned multiple times, call light in reach, bsr shared with pt and staff
--- NOTE | 2019-09-08 04:17 | NUR ---
SHIFT SUMMARY PT UP IN CHAIR AT SHIFT START, WAS EASY ST BY ASSIST TO BED AFTER MEDS ADMIN, NO COMPLAINTS OR S/SX OF DISCOMFORT, PT SLEPT T/O NIGHT, CALL LIGHT IN REACH, SLEEPING AT THIS TIME, WILL CONT TO MONITOR UNTIL REPORT GIVEN TO DAY RN.
--- NOTE | 2019-09-08 17:53 | NUR ---
SHIFT SUMMARY PT UP IN CHAIR MOST OF MORNING AND PART OF AFTERNOON. 1 PERSON ASSIST WITH TRANSFERS AND AMBULATION. EATING PARTS OF MEALS AND AT TIMES THROWING THE FOOD. GRINDING TEETH FREQUENTLY.
--- NOTE | 2019-09-09 05:16 | NUR ---
SHIFT SUMMARY PT HAS HAD NO ACUTE CHANGES THIS SHIFT, NO C/O ANY KIND, SLEPT T/O NIGHT & SLEEPING AT THIS TIME, CALL LIGHT IN REACH, WILL CONT TO MONITOR UNTIL REPORT GIVEN TO DAY RN.
--- NOTE | 2019-09-09 17:47 | NUR ---
SHIFT SUMMARY PT UP IN CHAIR MOST OF DAY. ASSISTED IN TO BATHROOM AND OFFERED THE BED FOR A NAP IN THE AFTERNOON BUT PT WANTED TO REMAIN SITTING IN CHAIR. OFFERED SMALL AMOUNTS OF FOOD AT A TIME. DRINKING NUTRITIONAL DRINKS WITH EACH MEAL.
--- NOTE | 2019-09-10 04:07 | NUR ---
SHIFT SUMMARY PT HAS HAD NO ACUTE CHANGES THIS SHIFT, NO C/O ANY KIND, SLEPT T/O NIGHT, SLEEPING AT THIS TIME, CALL LIGHT IN REACH, BED ALARM ON, WILL CONT TO MONITOR UNTIL REPORT GIVEN TO DAY RN.
--- NOTE | 2019-09-10 15:59 | NUR ---
Spiritual care visit conducted. Patient is sitting on a chair and alert. Patient is smiling often today and asking questions about one of her stuffed dogs and about the man on the TV who is running through the ayala. Patient tells me that it is a good day and that she wonders about all the people who move things in her room. I listen empathically and provide companionship and prayer. Patient responds well and shows signs of an elevated mood. I will continue to remain available to patient and family.
--- NOTE | 2019-09-10 19:45 | NUR ---
SHIFT SUMMARY- PT ORIENTED TO SELF. NO ACUTE CHANGE T/O THE DAY. PT DID HAVE SEVERAL BM'S. MEDS CRUSHED IN APPLE SAUCE.
--- NOTE | 2019-09-11 04:33 | NUR ---
SUMMARY NO ISSUES NOTED. PT HAS SLEPT T/O SHIFT. CALL LIGHT IN REACH, BED ALARM ON.
--- NOTE | 2019-09-11 14:59 | NUR ---
Pt. is sitting in a chair asnd watching TV , doing fine
--- NOTE | 2019-09-11 17:47 | NUR ---
PT AOX1 AND HAS HAD NO REAL CHANGES. PT HAS BEEN UP IN CHAIR FOR MEALS AND IS A TWO PERSON TO CHANGE SHE DOES NOT CARE FOR IT MUCH AND PUSHES WITH HER HANDS. TINY SMEARS OF BLOOD HAVE BEEN SEEN IN HER STOOL, BUT NOTHING ALARMING. DR FELIZ WAS NOTIFIED. PT IMPULSIVE AND BED ALARM IS IN PLACE. WILL CONTINUE TO MONITOR.
--- NOTE | 2019-09-12 03:43 | NUR ---
SUMMARY NO CHANGES IN PT NOTED. PT HAS SLEPT T/O SHIFT. PT REPOSITIONED AND CHANGED NEEDED. CALL LIGHT IN REACH, BED ALARM ON.
--- NOTE | 2019-09-12 14:11 | NUR ---
Pt. is in bed fast Pt. is in bed resting and she reports doing well,encouraged pt.
--- NOTE | 2019-09-12 18:39 | NUR ---
END OF SHIFT SUMMARY: PATIENT APPEARED COMFORTABLE THROUGHOUT SHIFT. NO SIGNS OR SYMPTOMS OF PAIN OR AGITATION. PATIENT DID EXPRESS SOME DISTRESS DURING BRIEF CHANGES. PATIENT IS INCONTINENT OF STOOL AND URINE. PATIENT SEEMED TO SHOW PREFERENCE TO LIQUIDS. PROVIDED WITH ADDITIONAL SUPPLEMENT INBETWEEN MEALS. PATIENT ATE FOOD SLOWLY AND CAREFULLY. NO ATTEMPT MADE BY PATIENT TO EAT NON-FOOD ITEMS (AND PATIENT SPACE WAS KEPT CLEAR OF LOOSE NON-FOOD ITEMS). PATIENT RESTED IN BED AND IN THE BEDSIDE CHAIR. PATIENT DID NOT ATTEMPT TO JUMP OUT OF BED OR THE CHAIR OR SHOW IMPULSIVE/AGITATED BEHAVIOR TODAY.
--- NOTE | 2019-09-13 05:08 | NUR ---
ADVANCED CLINICAL SPECIALIST SUMMARY NO ACUTE CHANGES. PT AAOX1 AND IRRITABLE WITH CARE. HAS SLEPT MOST OF THE NIGHT. DENIES PAIN. STILL WAITING ON GUARDIANSHIP/PLACEMENT. VSS, WILL CONTINUE TO MONITOR.
--- NOTE | 2019-09-13 12:22 | NUR ---
Pt in bed resting and having her snack .pt reports doing well encouraged and given spirirua support.
--- NOTE | 2019-09-13 16:30 | NUR ---
APPEARED TO HAVE BLOOD IN HER ATTENDS AFTER BM. DR. REES NOTIFIED. UNCERTIAN THE SOURCE.
--- NOTE | 2019-09-13 17:22 | NUR ---
SHIFT SUMMARY- PT IS ALERT. SHE IS APPETITE IS POOR THIS SHIFT. SHE IS DRINKING WELL. SHE REQUIRED MAX ASSISTANCE TO DRAW BLOOD THIS AFTERNOON. SHE IS INCONTINENT OF BOWEL AND URINE.
[2019-09-13 17:26] LABS: Hematocrit 38.2 % (33.0-51.0); Hemoglobin 12.9 g/dL (11.5-16.0); Mean Corpuscular HGB 31.8 pg (26.0-34.0); Mean Corpuscular HGB Conc 33.8 g/dL (31.5-36.5); Mean Corpuscular Volume 94 fL (80-100); Mean Platelet Volume 11.5 fL (9.1-12.4); Platelet Count 201 K/mm3 (150-400); RDW Coefficient Variation 12.1 % (11.7-14.2); RDW Standard Deviation 41.6 fL (35.1-46.3); Red Blood Cell Count 4.06 M/mm3 (3.80-5.20); White Blood Cell Count 8.35 K/mm3 (4.00-11.30)
--- NOTE | 2019-09-14 04:37 | NUR ---
AMERICAN SIGN LANGUAGE TEACHER SUMMARY PT AAOX1 AND IRRITABLE WITH CARE AT TIMES WHICH HAS BEEN PT'S BASELINE. STOOL NOTED TO HAVE LIGHT RED TINGE BUT NO LEEANNA BLOOD NOTED. UNABLE TO COLLECT SPECIMEN FOR GUIAC CHECK DUE TO STOOLS ONLY BEING SMEARS. PT DENIES PAIN OF ABD OR ANY PAIN IN GENERAL. HAS SLEPT COMFORTABLY THROUGH THE NIGHT. VSS, WILL CONTINUE TO MONITOR.
[2019-09-14 13:03] LABS: Hematocrit 39.8 % (33.0-51.0); Hemoglobin 13.5 g/dL (11.5-16.0); Mean Corpuscular HGB 31.6 pg (26.0-34.0); Mean Corpuscular HGB Conc 33.9 g/dL (31.5-36.5); Mean Corpuscular Volume 93 fL (80-100); Platelet Count 200 K/mm3 (150-400); RDW Coefficient Variation 12.1 % (11.7-14.2); RDW Standard Deviation 42.1 fL (35.1-46.3); Red Blood Cell Count 4.27 M/mm3 (3.80-5.20); White Blood Cell Count 7.72 K/mm3 (4.00-11.30)
[2019-09-14 14:08] LABS: Stool Occult Blood Guaiac 1 Pos (Neg)
--- NOTE | 2019-09-14 18:31 | NUR ---
SHIFT SUMMARY- PT IS ALERT AND COOPERATIVE. SHE IS INCONTINENT OF STOOL AND BLADDER. SENT STOOL SAMPLE POSITIVE FOR BLOOD. TAKING PROTONIX. HER APPETITE IS POOR. SHE IS INCONTINENT OF URINE AND STOOL.
--- NOTE | 2019-09-15 04:51 | NUR ---
SHIFT SUMMARY PT AAOX1 WHICH IS HER BASELINE. SHE HAS BEEN INCONTINENT OF URINE AND STOOL WITH IS ALSO BASELINE. STOOL HAS PINKISH TINGE TO IT. POS FOR BLOOD ON PRIOR SHIFT GUIAC. ON PPI. PT TOOK EVENING MEDS AFTER SOME COAXING AND FELL TO SLEEP SHORTLY AFTER. HAS SLEPT MUCH OF THE NIGHT. VSS. APPEARS IN NO ACUTE DISTRESS. WILL CONTINUE TO MONITOR.
--- NOTE | 2019-09-15 17:48 | NUR ---
SHIFT SUMMARY PT UP IN CHAIR FOR A FEW HOURS THIS SHIFT. TOLERATED WELL. PT HAS HAD CONTINUOUS SMEAR. PT REFUSED ORAL CARE. AGITATED WITH CASSI CARE, BUT ALLOWS FOR CARE. NO OTHER CHANGES IN ASSESSMENT AT THIS TIME.
--- NOTE | 2019-09-16 04:21 | NUR ---
SHIFT SUMMARY PT HAS SPENT THE NIGHT IN BED. FELL TO SLEEP SHORTLY AFTER EVENING MED PASS. AWAKENS EASILY DURING ATTENDS CHANGES. NO ACUTE CHANGES NOTED THIS NIGHT. WILL CONTINUE TO MONITOR.
--- NOTE | 2019-09-16 17:08 | NUR ---
SHIFT SUMMARY PT UP TO CHAIR ONCE THIS SHIFT. PT PUT SELF BACK IN BED BEFORE DINNER. PT CURRENTLY SITTING UPRIGHT IN BED EATING DINNER. CALL LIGHT IN REACH. NO BLOOD SEEN IN STOOLS. BMS CONTINUE TO BE CONSTANT SMALL AMOUNTS. NO OTHER CHANGES IN ASSESSMENT AT THIS TIME.
--- NOTE | 2019-09-17 05:58 | NUR ---
SHIFT SUMMARY PT SPENT THE NIGHT IN BED. FELL TO SLEEP SHORTLY AFTER EVENING MED PASS. SHE CONTINUES TO BE INCONTINENT OF BOWEL AND BLADDER. STOOLS WERE NOTED TO BE PINK TINGED. TURNED AND CHANGED THROUGH THE NIGHT. NO ACUTE CHANGES. PT PRESENTLY APPEARS TO BE SLEEPING AND IN NO ACUTE DISTRESS. WILL CONTINUE TO MONITOR.
[2019-09-17 08:36] LABS: Hematocrit 39.7 % (33.0-51.0); Hemoglobin 13.3 g/dL (11.5-16.0)
--- NOTE | 2019-09-17 18:16 | NUR ---
SHIFT SUMMARY PT AMBULATING WELL TODAY. PT SHOWERED WITH ASSISTANCE. UP IN CHAIR MOST THE DAY. TOLERATED WELL. PT PULLED OFF FOAM PLACED TO SACRUM. PT SEEN BY THE COURT FOR POSSIBLE GAURDIANSHIP. NO OTHER CHANGES IN ASSESSMENT AT THIS TIME. WILL CONTINUE TO MONITOR UNTIL TURNOVER IS COMPLETE.
--- NOTE | 2019-09-18 04:33 | NUR ---
SHIFT SUMMARY PT PLEASANTLY CONFUSED. PT DOES NOT UPSET WITH CARE AT TIMES. WHEN CHANGING PT PT CONTINUOUSLY ATTEMPTS TO COVER SELF AND SAYS, "DON'T DO THAT". PT INCONTINENT OF URINE AND STOOL. PT HAS A WHAT APPEARS TO BE A CONSTANT SMEAR WITH STOOL. STOOL BROWN AND SOFT. NO RED TINGE NOTED TO STOOL THIS EVENING. SOME REDNESS TO BOTTOM. BARRIER CREAM APPLIED. PT GRINDS TEETH. ATTEMPTED TO DO ORAL CARE BUT PT WOULD NOT ALLOW. PT AWAITING GUARDIANSHIP AND PLACEMENT. VITAL SIGNS STABLE. NO ACUTE CHANGES THIS SHIFT. WILL CONTINUE TO MONITOR.
--- NOTE | 2019-09-18 12:41 | NUR ---
Pt. is sitting k up and watching T.V. she seems to be doingb well encouraged pt. and offered some prayers.
--- NOTE | 2019-09-18 12:44 | NUR ---
Pt. sitting up and watch TV, she seems to be doing fine , offered some prayers and gave spiritual support.
--- NOTE | 2019-09-18 18:44 | NUR ---
SHIFT SUMMARY PT 1 PERSON ASSIST TO CHAIR AND BACK TO BED. DISCUSSED PTS CONTINUOUS OOZING/SMEARING OF STOOL WITH MD. FEEDING SELF IN SMALL AMOUNTS BUT PLAYS WITH FOOD WELL. PREFERS TO DRINK LIQUIDS. LELE LIRA HERE TO EVALUATE PT TODAY.
--- NOTE | 2019-09-19 05:24 | NUR ---
SHIFT SUMMARY: PATIENT IS ALERT AND ORIENTED TO SELF, VS ARE STABLE, NO COMPLIANTS OF PAIN OR DISCOMFORT. PATIENT IS INC. OF B&B AND HAS SMALL PASTY SMEARS AT EVERY ATTENDS CHANGE. TAKES SNACK AND PO FLUIDS WITHOUT DIFFICULT AND WITH SUPPERVISION.
--- NOTE | 2019-09-19 13:52 | NUR ---
Pt resting in chair upon arrival. Pt is A&O to self only. Pt engages in non sensical conversation. Pt appears comfortable with no S/S of distress at this time. Spoke with bedside RN Pat and discussed case. Pat reports no concerns at this time. Spoke with Licensed Embalmer Supervisor Laine and discussed case. Pt has public guardianship established and currently 2 facilities are concidering Pt. Palliative Care will F/U if called upon. No concerns noted at this time.
--- NOTE | 2019-09-19 14:24 | NUR ---
Pt. is sitting up in a chair and playing with her toil
--- NOTE | 2019-09-19 17:30 | NUR ---
PATIENT IS ALERT AND ORIENTED TO SELF. MEALS ARE SUPERVISED. ATTENDS CHANGED PRN. PATIENT IS UP TO CHAIR FOR MEALS. WILL CONTINUE TO MONITOR
--- NOTE | 2019-09-20 03:54 | NUR ---
SHIFT SUMMARY PATIENT HAD NO ACUTE CHANGES NOTED. AXO TO SELF. REFUSED MEDICATION MULTIPLE TIMES BEFORE TAKING THEM CRUSHED IN APPLESAUCE. NO S/SX OF PAIN, SOB, AND N/V. VSS/AFEBRILE. PATIENT SLEPT T/O NIGHT. CALL LIGHT IN REACH. BED ALARM ACTIVATED AND IN LOWEST POSITION. WILL CONTINUE TO MONITOR UNTIL DAY SHIFT NURSE ASSUMES CARE.
--- NOTE | 2019-09-20 12:12 | NUR ---
Pt. is lying in bed resting and watching T.V , offered prayers and encouragement
--- NOTE | 2019-09-20 18:36 | NUR ---
PATIENT IS ALERT AND ORIENTED TO SELF AND FOLLOWING DIRECTIONS. SHE IS COOPERATIVE WITH CARE BUT HAS TO BE ENCOURAGED TO BE CHANGED OR TO GET OUT OF BED. NO COMPLAINTS. WILL CONTINUE TO MONITOR
--- NOTE | 2019-09-20 23:01 | NUR ---
PATIENT SLEEPING. CALL LIGHT IN REACH.
--- NOTE | 2019-09-21 03:28 | NUR ---
SHIFT SUMMARY PATIENT HAD NO ACUTE CHANGES OBSERVED. AXO TO SELF. ONE ASSIST TO BSC. TAKES MEDICATION CRUSHED IN APPLE SAUCE. NO IV ACCESS. VSS/AFEBRILE. NO S/SX OF PAIN, SOB, AND N/V. CALL LIGHT IN REACH. BED IN LOWEST POSITION. WILL CONTINUE TO MONITOR UNTIL DAY SHIFT NURSE ASSUMES CARE.
--- NOTE | 2019-09-21 17:22 | NUR ---
PATIENT IS ALERT AND ORIENTED TO SELF AND FOLLOWING DIRECTIONS. SHE IS INCONTINENT OF BOWEL AND BLADDER. ATTENDS IN PLACE. POOR SKIN INTEGRITY IN THE CASSI AREA FROM INCONTINENCE. PATIENT WAS SHOWERED THIS MORNING. NO NEW CONCERNS. WILL CONTINUE TO MONITOR
--- NOTE | 2019-09-22 05:38 | NUR ---
SHIFT SUMMARY PT IS A 59 Y/O FEMALE, ADMITTED FOR DANGER TO SELF. PT IS A&O X SELF ONLY, AND ON BEDREST. PT HAD NONSENSICAL SPEECH AT TIMES, AND DOES NOT FOLLOW DIRECTIONS WELL. PT IS INCONTINENT, TURN Q2H. VITAL SIGNS STABLE. NO COMPLAINTS OF PAIN, NAUSEA OR SOB. NO OTHER ACUTE CHANGES IN PT CONDITION NOTED DURING THE NIGHT. WILL CONTINUE TO MONITOR AND TREAT PER EMAR UNTIL HAND OFF TO DAY SHIFT RN.
--- NOTE | 2019-09-22 15:57 | NUR ---
SHIFT SUMMARY PT IS A/O TO HERSELF. SHE HAS SIGNIFICANT CONFUSION AT BASELINE AND HER SPEECH IS SPONTANEOUS. ORAL CARE WAS COMPLETED. SHE REMAINS INC OF B/B. PT IS CALM FOR THE MOST PART BUT DOES BECOME AGITATED AT TIMES DURING ADLS. SHE IS RESTING IN BED.
--- NOTE | 2019-09-23 06:25 | NUR ---
SHIFT SUMMARY PT IS A 59 Y/O FEMALE, ADMITTED FOR DANGER TO SELF R/T LATE STAGE DEMENTIA. SHE IS A&O X SELF ONLY, WITH NONSENSICAL SPEECH. NO COMPLAINTS OR S/S OF DISTRESS, PAIN, NAUSEA OR SOB. VITAL SIGNS STABLE. PT SLEPT WELL THROUGH THE NIGHT. NO ACUTE CHANGES IN PT CONDITION NOTED. WILL CONTINUE TO MONITOR AND TREAT PER EMAR UNTIL HAND OFF TO DAY SHIFT RN.
--- NOTE | 2019-09-23 15:58 | NUR ---
SHIFT SUMMARY PT IS A/O X 1 AT TIMES SHE DOESNT ALWAYS RESPOND TO HER NAME AND HER SPEECH IS GARBLED. SHE HAS NO S/S OF DISTRESS. ORAL CARE HAS BEEN DONE THROUGHOUT THE DAY. PT REMAINS INC OF B/B. BED IS IN LOW POSITION. PT IS NOT ABLE TO MAKE HER NEEDS KNOWN AND NEEDS FREQUENT ROUNDING.
--- NOTE | 2019-09-24 05:16 | NUR ---
SHIFT SUMMARY PT IS A 59 Y/O FEMALE, ADMITTED FOR DANGER TO SELF R/T SEVERE DEMENTIA. SHE IS A&O X SELF ONLY, WITH NONSENSICAL SPEECH. PT IS ABLE TO AMBULATE WITH 1PA. NO COMPLAINTS OR S/S OF PAIN, NAUSEA OR SOB. VITAL SIGNS STABLE. NO OTHER ACUTE CHANGES IN PT CONDITION NOTED. WILL CONTINUE TO MONITOR AND TREAT PER EMAR UNTIL HAND OFF TO DAY SHIFT RN.
--- NOTE | 2019-09-24 17:41 | NUR ---
SHIFT SUMMARY PT IS A/O X 1 AT BASELINE. SHE HAS NO C/O PAIN OR DISCOMFORT. SHE CONTINUES TO BE INC OF B/B. CARE MANAGEMENT IS ACTIVELY WORKING ON PLACEMENT FOR HER AND [facility] CALLED TO DO A PHONE ASSESSMENT TODAY DUE TO THE RESTRICTIONS ON VISITORS RIGHT NOW. PT HAS BEEN RESTING IN BED. SHE HAS HER CALL LIGHT IN REACH BUT CONTINUES TO NEED FREQUENT ROUNDING.
--- NOTE | 2019-09-25 04:45 | NUR ---
SHIFT SUMMARY NO ACUTE CHANGES THIS SHIFT. VSS. RESPONDS TO VERBAL STIMULI W/NONSENSICAL WORDS THAT DON'T CORRESPOND WITH WHAT IS BEING ASKED. DOESN'T FOLLOW DIRECTIONS WELL. 1-2 ASSIST FOR CHANGING. INCONTINENT OF BM & URINE. BM IS FREIDA BROWN IN COLOR. NO S/S OF PAIN, NAUSEA OR DYSPNEA. CALL LIGHT IN REACH. WCTM.
[2019-09-25 06:20] LABS: BASOPHILS ABSOLUTE AUTO 0.05 K/mm3 (0.00-0.23); BASOPHILS PERCENT AUTO 1 % (0-2); EOSINOPHILS ABSOLUTE AUTO 0.12 K/mm3 (0.00-0.68); EOSINOPHILS PERCENT AUTO 2 % (0-6); Hematocrit 40.4 % (33.0-51.0); Hemoglobin 13.6 g/dL (11.5-16.0); IMMATURE GRAN ABSOLUTE AUTO 0.01 K/mm3 (0.00-0.10); IMMATURE GRAN PERCENT AUTO 0 % (0-1); LYMPHOCYTES ABSOLUTE AUTO 2.15 K/mm3 (0.84-5.20); LYMPHOCYTES PERCENT AUTO 33 % (21-46); MONOCYTES ABSOLUTE AUTO 0.73 K/mm3 (0.16-1.47); MONOCYTES PERCENT AUTO 11 % (4-13); Mean Corpuscular HGB 31.4 pg (26.0-34.0); Mean Corpuscular HGB Conc 33.7 g/dL (31.5-36.5); Mean Corpuscular Volume 93 fL (80-100); Mean Platelet Volume 10.6 fL (9.1-12.4); NEUTROPHILS ABSOLUTE AUTO 3.44 K/mm3 (1.96-9.15); NEUTROPHILS PERCENT AUTO 53 % (41-73); Platelet Count 193 K/mm3 (150-400); RDW Coefficient Variation 12.3 % (11.7-14.2); RDW Standard Deviation 42.5 fL (35.1-46.3); Red Blood Cell Count 4.33 M/mm3 (3.80-5.20)
[2019-09-25] MEDS ORDERED: FAMO20 PO (09:08)
[2019-09-25] MEDS ORDERED: ACET325 PO (09:08)
[2019-09-25] MEDS ORDERED: QUET25 PO ×2 (09:09→09:10)
--- NOTE | 2019-09-25 09:25 | NUR ---
[facility] CALLED TO [facility] AT [facility]
--- NOTE | 2019-09-25 10:09 | NUR ---
1000 PT TO DISCHARGE TO [facility] IN [place]. MEDS FAXED OVER TO PROVIDER. NO IV TO REMOVE , NO EDUCATION NEEDED. PT UNABLE TO SIGN DUE TO COGNITIVE DISABILITIES. PT TAKEN TO [place] BY FLOYD DAVID, TAKEN DOWN IN BY STAFF.
--- NOTE | 2019-09-25 12:51 | NUR ---
Pt. is not in the room, she is improved and is discharged prayed for pt.
== END 2019-09-25 10:03 | disposition home or self-care (01) ==
LOC: ER 14:24 → MEDS 14:26 → EOR 14:26 → MEDS 23:09 → ENPENDDIS 09-25 08:25 → MEDS 09-25 10:03
PROVIDERS: Emergency Medicine; Family Medicine; Hospitalist; Internal Medicine; Nurse Practitioner Acute Care; Physician Assistant; ADMIT Internal Medicine
DX: F03.91 Unspecified dementia, unspecified severity, with behavioral disturbance (principal); E11.65 Type 2 diabetes mellitus with hyperglycemia; E44.0 Moderate protein-calorie malnutrition; E87.0 Hyperosmolality and hypernatremia; R32 Unspecified urinary incontinence; R19.5 Other fecal abnormalities; T74.01XA Adult neglect or abandonment, confirmed, initial encounter; Z66 Do not resuscitate
CPT/HCPCS: 36415; 70450; 80048; 80053; 80069; 81001; 82270; 82272; 82947; 83036; 84439; 84443; 84481; 85014; 85018; 85025; 85027; 85610; 86592; 87086; 90686; 99285-25; A9270; A9270-GY; C9113; G0480; J1650